=== PATIENT | female | born 1940 | race Caucasian/White ===

== ENCOUNTER → 2016-04-01 09:04 | Outpatient (CLI) | payer MEDICARE, BC ==
[2011-05-22 09:16] VITALS: BMI 45.0
== END | disposition home or self-care (01) ==
LOC: D.RT 09:00
DX: J44.9 Chronic obstructive pulmonary disease, unspecified (principal)

== ENCOUNTER 2016-10-02 07:27 | Inpatient (IN) | payer MEDICARE, BC ==
[~2016-10-02] VITALS: Ht 154.9 cm; Wt 100.2 kg
[2016-10-02 08:16] LABS: BASOPHILS 0.1 % (0-2); EOSINOPHILS 0.2 % (0-7); HEMATOCRIT 34.8 % (36.0-48.0); HEMOGLOBIN 11.3 g/dL (12-16); IMMATURE GRANULOCYTES 0.2 % (0-5); LYMPHOCYTES 5.6 % (15-50); MCH 30.4 pg (26.0-34.0); MCHC 32.5 g/dL (31.0-37.0); MCV 93.5 fL (80.0-100.0); MEAN PLATELET VOLUME 9.6 fL (7.4-10.4); MONOCYTES 7.1 % (2-11); NEUTROPHILS 86.8 % (40-80); PLATELET COUNT 194 10x3/uL (130-400); RBC 3.72 10x6/uL (4.00-5.40); WBC 13.6 10x3/uL (4.8-10.8)
[2016-10-02 08:24] LABS: ALBUMIN 3.5 g/dL (3.4-5.0); ALKALINE PHOSPHATASE 96 U/L (46-116); ALT (SGPT) 35 U/L (10-68); BILIRUBIN - TOTAL 0.64 mg/dL (0.2-1.3); CALC OSMOLALITY 278 mosm/kg (275-300); CARBON DIOXIDE 29.9 mmol/L (21.0-32.0); CHLORIDE - SERUM 99 mmol/L (98-107); CREATININE - SERUM 0.7 mg/dL (0.6-1.3); GLUCOSE 145 mg/dL (74-106); POTASSIUM - SERUM 4.1 mmol/L (3.5-5.1); PROTEIN - SERUM 7.3 g/dL (6.4-8.2); SODIUM 138 mmol/L (136-145); UREA NITROGEN 13 mg/dL (7-18); eGFR NON AFRICAN AMERICAN 86 mL/min (90-120)
[2016-10-02 08:31] LABS: CREATINE KINASE 53 UL (21-215); PRO BNP 375 pg/mL (0-450)
[2016-10-02 17:05] LABS: CKMB 0.7 U/L (0.0-3.6)
[2016-10-02 19:00] VITALS: BP 176/63
--- NOTE | 2016-10-02 19:53 | NUR ---
ARRIVED ON UNIT ACCOMPANIED BY HOSPITAL STAFF.
--- NOTE | 2016-10-02 20:10 | NUR ---
PT IN BED WITH HOB UP FOR COMFORT. WATCHING TV. ALERT & ORIENTED. FSBS ACHS. TELEMETRY. 02 @ 4L VIA N/C. LT AC SALINE LOC. BED IN LOWEST POSITION AND CALL LIGHT WITHIN REACH.
--- NOTE | 2016-10-02 20:15 | NUR ---
PT IN BED WITH HOB UP FOR COMOFRT. PT STATES SHE IS BREATHING A LITTLE BETTER. WILL CONTINUE TO MONITOR. CALL LIGHT WITHIN REACH.
[2016-10-02] MEDS ORDERED: PREDNISONE2.5 MG PO (22:12)
[2016-10-02] MEDS ORDERED: CALAN SR240 MG PO (22:13)
[2016-10-02] MEDS ORDERED: LASIX40 MG PO (22:14)
[2016-10-02] MEDS ORDERED: COZAAR25 MG PO (22:14)
[2016-10-02] MEDS ORDERED: GLUCOPHAGE500 MG PO (22:15)
[2016-10-02] MEDS ORDERED: K-DUR20 MEQ PO (22:15)
[2016-10-02] MEDS ORDERED: LOZOL 2.5 MG T2.5 MG PO (22:15)
[2016-10-02] MEDS ORDERED: NASONEX NASAL S17 GM NS (22:16)
[2016-10-02] MEDS ORDERED: ADVAIR 500/501 DISK INH (22:16)
--- NOTE | 2016-10-02 23:48 | NUR ---
RN TO DO ASSESSMENT.
--- NOTE | 2016-10-03 01:36 | NUR ---
CALL LIGHT IN REACH, WILL CONTINUE WITH PLAN OF CARE.
--- NOTE | 2016-10-03 02:56 | NUR ---
PT IN BED WITH HOB UP FOR COMFORT. EYES CLOSED. CHEST RISING AND FALLING. BED IN LOWEST POSITION AND CALL LIGHT WITHIN REACH.
--- NOTE | 2016-10-03 04:18 | NUR ---
PT IN BED WITH HOB UP FOR COMFORT. EYES CLOSED. RESP. EVEN. BED IN LOWEST POSITION AND CALL LIGHT WITHIN REACH.
[2016-10-03 06:11] LABS: BASOPHILS 0 % (0-2); EOSINOPHILS 0 % (0-7); HEMATOCRIT 37.6 % (36.0-48.0); HEMOGLOBIN 12.4 g/dL (12-16); IMMATURE GRANULOCYTES 0.4 % (0-5); LYMPHOCYTES 10.7 % (15-50); MCH 31.2 pg (26.0-34.0); MCV 94.7 fL (80.0-100.0); MEAN PLATELET VOLUME 9.9 fL (7.4-10.4); MONOCYTES 3.1 % (2-11); NEUTROPHILS 85.8 % (40-80); RBC 3.97 10x6/uL (4.00-5.40); RDW 13.7 % (11.5-14.5); WBC 10.7 10x3/uL (4.8-10.8)
[2016-10-03 06:14] LABS: PLATELET COUNT 260 10x3/uL (130-400)
[2016-10-03 06:24] VITALS: BP 144/85
[2016-10-03 06:30] LABS: ALBUMIN 3.5 g/dL (3.4-5.0); ANION GAP 13.9 mmol/L (8-16); BILIRUBIN - TOTAL 0.41 mg/dL (0.2-1.3); CALCIUM 8.8 mg/dL (8.5-10.1); CARBON DIOXIDE 31.8 mmol/L (21.0-32.0); CREATININE - SERUM 0.8 mg/dL (0.6-1.3); POTASSIUM - SERUM 3.7 mmol/L (3.5-5.1); PROTEIN - SERUM 7.9 g/dL (6.4-8.2)
--- NOTE | 2016-10-03 07:47 | NUR ---
AM ROUNDING- RECEIVED REPORT FROM RODEO CLOWN NURSE SARATH. PT IS CURRENTLY SITTING UP ON SIDE OF BED. DENIES ANY PAIN AT CURRENT TIME. ON O2 AT 4L VIA NC. ON MONITOR SHOWING SR, HR 82. IV SEEN TO LEFT AC THAT IS CURRENTLY SALINE LOCKED. NO NEED AT CURRENT TIME. WILL CONTINUE TO MONITOR AND CONTINUE WITH PLAN OF CARE.
[2016-10-03 08:00] VITALS: BP 133/86
[2016-10-03] MEDS ORDERED: PREDNISONE20 MG PO (14:02)
[2016-10-03 14:06] VITALS: Ht 154.9 cm; Wt 100.2 kg
--- NOTE | 2016-10-03 16:21 | NUR ---
D/C INSTRUCTIONS EXPLAINED TO PT. D/C PAPERWORK SIGNED BY PT AND PLACED IN CHART. HEART MONITOR REMOVED AND RETURNED TO [facility] IN TELEMETRY. IV TO LEFT AC REMOVED WITH CATH TIP INTACT. TOLERATED WELL. COVERED SITE WITH 2X2 GAUZE PADS AND SECURED WITH TAPE. PT D/C VIA WHEELCHAIR.
--- NOTE | 2016-10-03 20:28 | NUR ---
Patient Name: CHIKA CHAPPELL Admission Status: ER Accout number: [id number] Admission Date: 10-02-2016 : 1940 Admission Diagnosis: Attending: GODFREY Current LOS: 1 Anticipated DC Date:10-03-2016 Planned Disposition: Home Primary Insurance: MEDICARE A & B LATE ENTRY: Discharge Planning Comments: * Is the patient Alert and Oriented? Yes 0 * How many steps to enter\exit or inside your home? 2 0 * PCP DR SÁNCHEZ 0 * Pharmacy [facility] 0 * Preadmission Environment Home with Family 0 * ADLs Independent 0 * Equipment CPAP Nebulizer Oxygen Walker 0 * Other Equipment HOME AND PORTABLE OXYGEN [facility] - MEDICAL EQUIPMENT PROVIDER 0 * List name and contact numbers for known caregivers / representatives who currently or will assist patient after discharge: RADHA CHAPPELL, SON, 0 * Community resources currently utilized None 0 * Please name any agencies selected above. NONE 0 * Additional services required to return to the preadmission environment? No 0 * Can the patient safely return to the preadmission environment? Yes 0 * Has this patient been hospitalized within the prior 30 days at any hospital? No 0 CM MET WITH PT IN ROOM TO DISCUSS DISCHARGE PLANNING AND NEEDS. PT REPORTS LIVING AT HOME INDEPENDENTLY WITH HER ADULT SON. PT HAS ALL NEEDED MEDICAL EQUIPMENT AND NO OUTSIDE SERVICES ASSISTING IN THE HOME. CM DISCUSSED AVAILABILITY OF HOME HEALTH, REHAB SERVICES AND MEDICAL EQUIPMENT. PT DENIES DISCHARGE NEEDS, REPORTS HER SON WILL PICK HER UP FOR DISCHARGE HOME. Injection Mold Technician: Osmar Wynn
== END 2016-10-03 16:23 | disposition home or self-care (01) | DRG 192 ==
LOC: D.ER 07:27 → D.SDCHOLD 11:19 → D.M2 11:19
PROVIDERS: Emergency Medicine; ADMIT Family Medicine
DX: J44.1 Chronic obstructive pulmonary disease with (acute) exacerbation (principal); E11.9 Type 2 diabetes mellitus without complications

== ENCOUNTER 2017-03-02 20:20 | Inpatient (IN) | payer MEDICARE, BC ==
[~2017-03-02] VITALS: Ht 154.9 cm; Wt 107.3 kg
[~2017-03-02 20:20] MED LIST: ADVAIR 500/501 DISK INH; CALAN SR240 MG PO; COZAAR25 MG PO; GLUCOPHAGE500 MG PO; K-DUR20 MEQ PO; LASIX40 MG PO; LOZOL 2.5 MG T2.5 MG PO; NASONEX NASAL S17 GM NS; PREDNISONE2.5 MG PO; PREDNISONE20 MG PO
[2017-03-02 20:40] LABS: BASOPHILS 0.1 % (0-2); EOSINOPHILS 0 % (0-7); IMMATURE GRANULOCYTES 0.2 % (0-5); LYMPHOCYTES 10.7 % (15-50); MCH 29.6 pg (26.0-34.0); MCHC 31.4 g/dL (31.0-37.0); MCV 94.1 fL (80.0-100.0); MEAN PLATELET VOLUME 9.8 fL (7.4-10.4); MONOCYTES 7.2 % (2-11); NEUTROPHILS 81.8 % (40-80); PLATELET COUNT 150 10x3/uL (130-400); RBC 3.72 10x6/uL (4.00-5.40); RDW 15.1 % (11.5-14.5); WBC 10.4 10x3/uL (4.8-10.8)
[2017-03-02 21:06] LABS: ALBUMIN 3.6 g/dL (3.4-5.0); ALKALINE PHOSPHATASE 93 U/L (46-116); ALT (SGPT) 84 U/L (10-68); CALC OSMOLALITY 280 mosm/kg (275-300); CALCIUM 8.7 mg/dL (8.5-10.1); CARBON DIOXIDE 31.4 mmol/L (21.0-32.0); CHLORIDE - SERUM 99 mmol/L (98-107); CREATININE - SERUM 0.6 mg/dL (0.6-1.3); GLUCOSE 137 mg/dL (74-106); PROTEIN - SERUM 7.2 g/dL (6.4-8.2); SODIUM 139 mmol/L (136-145); UREA NITROGEN 15 mg/dL (7-18); eGFR NON AFRICAN AMERICAN > 90 mL/min (90-120)
[2017-03-02 21:08] LABS: CKMB 0.8 U/L (0.0-3.6); CREATINE KINASE 88 UL (21-215); PRO BNP 324 pg/mL (0-450); TROPONIN-I < 0.017 ng/mL (0.000-0.060)
--- NOTE | 2017-03-02 22:40 | NUR ---
REC'D PATIENT FROM ER. PATIENT RESTING IN BED AND COMPLAINED OF DIFFICULTY BREATHING. PATIENT'S O2 IS 98% ON 4L. INSTRUCTED THE PATIENT ON BREATHING. PATIENT STATED SHE IS "OK NOW". COMPLETED PATIENT'S ADMISSION AND ASSESSMENT. RAISED THE HOB ALL THE WAY UP PER THE PATIENT'S REQUEST AND PUT A FAN IN HER ROOM. PATIENT DENIES OTHER NEEDS AT THIS TIME. BED IN LOWEST POSITION AND CALL LIGHT WITHIN REACH. ENCOURAGED THE PATIENT TO CALL IF SHE HAS NEEDS.
[2017-03-03 02:09] VITALS: BP 149/59; BMI 42.6
[2017-03-03 05:50] LABS: BASOPHILS 0 % (0-2); EOSINOPHILS 0 % (0-7); HEMATOCRIT 36.9 % (36.0-48.0); HEMOGLOBIN 11.8 g/dL (12-16); IMMATURE GRANULOCYTES 0.2 % (0-5); LYMPHOCYTES 3.3 % (15-50); MCH 30.3 pg (26.0-34.0); MCV 94.6 fL (80.0-100.0); MEAN PLATELET VOLUME 9.7 fL (7.4-10.4); MONOCYTES 2.7 % (2-11); NEUTROPHILS 93.8 % (40-80); PLATELET COUNT 160 10x3/uL (130-400); RDW 15.3 % (11.5-14.5); WBC 11.7 10x3/uL (4.8-10.8)
[2017-03-03 06:14] LABS: ANION GAP 13.5 mmol/L (8-16); CALCIUM 8.5 mg/dL (8.5-10.1); CARBON DIOXIDE 31.5 mmol/L (21.0-32.0)
[2017-03-03 06:16] LABS: CREATININE - SERUM 0.8 mg/dL (0.6-1.3)
--- NOTE | 2017-03-03 07:38 | NUR ---
REPORT RECEIVED, ASSUMED CARE OF PT. RESTING, FAMILY AT BEDSIDE. NO NEEDS VOICED AT THIS TIME. BED IN LOWEST POSITION, SIDE RAILS UP X 2, CALL LIGHT WITHIN REACH.
[2017-03-03 07:46] VITALS: BP 104/58; BP 152/57
[2017-03-03 11:59] VITALS: BP 126/56
[2017-03-03 13:56] VITALS: Ht 154.9 cm; Wt 107.3 kg
[2017-03-03 16:07] VITALS: BP 115/57
--- NOTE | 2017-03-03 21:10 | NUR ---
PATIENT RESTING IN BED WITH NO S/S OF DISTRESS. BED IN LOWEST POSITION AND CALL LIGHT WITHIN REACH.
[2017-03-04 02:00] VITALS: BP 127/66
[2017-03-04 05:00] VITALS: BP 122/68
[2017-03-04 05:51] LABS: BASOPHILS 0.1 % (0-2); EOSINOPHILS 0 % (0-7); HEMATOCRIT 34.4 % (36.0-48.0); IMMATURE GRANULOCYTES 0.2 % (0-5); LYMPHOCYTES 5.7 % (15-50); MCH 29.8 pg (26.0-34.0); MCV 93.2 fL (80.0-100.0); MEAN PLATELET VOLUME 9.7 fL (7.4-10.4); MONOCYTES 4.2 % (2-11); NEUTROPHILS 89.8 % (40-80); PLATELET COUNT 161 10x3/uL (130-400); RBC 3.69 10x6/uL (4.00-5.40); RDW 15.2 % (11.5-14.5); WBC 9.1 10x3/uL (4.8-10.8)
[2017-03-04 06:16] LABS: ALBUMIN 3.5 g/dL (3.4-5.0); ALKALINE PHOSPHATASE 84 U/L (46-116); ALT (SGPT) 78 U/L (10-68); CALC OSMOLALITY 286 mosm/kg (275-300); CALCIUM 8.5 mg/dL (8.5-10.1); CARBON DIOXIDE 30.3 mmol/L (21.0-32.0); CHLORIDE - SERUM 97 mmol/L (98-107); CREATININE - SERUM 0.7 mg/dL (0.6-1.3); GLUCOSE 173 mg/dL (74-106); POTASSIUM - SERUM 3.9 mmol/L (3.5-5.1); PROTEIN - SERUM 6.9 g/dL (6.4-8.2); SODIUM 139 mmol/L (136-145); eGFR NON AFRICAN AMERICAN 86 mL/min (90-120)
[2017-03-04 06:17] LABS: UREA NITROGEN 26 mg/dL (7-18)
--- NOTE | 2017-03-04 07:33 | NUR ---
PATIENT SITTING UP ON THE SIDE OF HER BED. PATIENT IS AWAKE, ALERT, AND ORIENTED X4. DROPLET PRECAUTIONS IN PLACE. PATIENT DENIES ANY NEEDS AT PRESENT TIME. CALL LIGHT IN PATIENT'S REACH. WILL MONITOR PATIENT.
[2017-03-04 08:34] VITALS: BP 123/55
[2017-03-04 11:57] VITALS: BP 116/52
[2017-03-04 16:07] VITALS: BP 106/76
[2017-03-04 20:00] VITALS: BP 118/47
--- NOTE | 2017-03-04 20:10 | NUR ---
PATIENT WAS SITTING UP AT THE SIDE OF THE BED WITH HER O2 ON WHEN I ENTERED THE ROOM. I ADMINISTERED THE PATIENT'S MEDS PER ORDERS AND COMPLETED HER ASSESSMENT. I SWITHCED THE PATIENT TO HER CPAP PER HER REQUEST AND HELPED HER GET POSITIONED IN THE BED. THE PATIENT STATED IT IS "HARD TO BREATH IN THE BED" AND WANTED TO SIT ON THE SIDE OF THE BED AGAIN. I OFFERED TO ASSIST THE PATIENT TO THE CHAIR AND SHE AGREED. AFTER ASSISTING THE PATIENT TO THE CHAIR SHE AGAIN SAID "IT IS HARD TO BREATH THIS WAY TOO" AND REQUESTED THAT I HELP HER BACK TO BED. THE PATIENT REQUESTED TO STAY SITTING ON THE BED. BED IS IN THE LOWEST POSITION AND THE CALL LIGHT IS WITHIN REACH. ENCOURAGED THE PATIENT TO CALL IF SHE HAS NEEDS.
[2017-03-05] VITALS: BP 110/49
[2017-03-05 04:00] VITALS: BP 153/59
--- NOTE | 2017-03-05 04:36 | NUR ---
PATIENT HAS SAT UP ON THE SIDE OF THE BED MOST OF THE NIGHT. I HAVE ATTEMPTED TO HELP THE PATIENT INTO THE BED/CHAIR SEVERAL TIMES, HOWEVER, THE PATIENT STATED "IT MAKES IT HARDER TO BREATH"
[2017-03-05 05:53] LABS: BASOPHILS 0.2 % (0-2); EOSINOPHILS 0 % (0-7); HEMATOCRIT 35.9 % (36.0-48.0); HEMOGLOBIN 11.8 g/dL (12-16); IMMATURE GRANULOCYTES 0.4 % (0-5); LYMPHOCYTES 5.9 % (15-50); MCH 30.3 pg (26.0-34.0); MCHC 32.9 g/dL (31.0-37.0); MCV 92.3 fL (80.0-100.0); MEAN PLATELET VOLUME 9.6 fL (7.4-10.4); MONOCYTES 7.5 % (2-11); PLATELET COUNT 193 10x3/uL (130-400); RBC 3.89 10x6/uL (4.00-5.40); RDW 14.8 % (11.5-14.5); WBC 11.1 10x3/uL (4.8-10.8)
[2017-03-05 06:13] LABS: ALBUMIN 3.7 g/dL (3.4-5.0); ANION GAP 8.1 mmol/L (8-16); BILIRUBIN - TOTAL 0.4 mg/dL (0.2-1.3); CALCIUM 8.8 mg/dL (8.5-10.1); CARBON DIOXIDE 31.5 mmol/L (21.0-32.0); CREATININE - SERUM 0.8 mg/dL (0.6-1.3); POTASSIUM - SERUM 3.6 mmol/L (3.5-5.1); PROTEIN - SERUM 7.8 g/dL (6.4-8.2)
--- NOTE | 2017-03-05 08:07 | NUR ---
PATIENT SITTING UP ON THE SIDE OF HER BED. PATIENT IS AWAKE, ALERT, AND ORIENTED X4. ASSESSMENT COMPLETED. SEE FLOWSHEET FOR DETAILS. SCHEDULED MORNING MEDICATIONS GIVEN TO PATIENT. PATIENT TOLERATED WELL. PATIENT IS A DNR. CALL LIGHT IN PATIENT'S REACH. DROPLET PRECAUTIONS IN PLACE. PATIENT DENIES ANY NEEDS AT PRESENT TIME. WILL MONITOR PATIENT.
[2017-03-05 09:13] VITALS: BP 91/84
[2017-03-05 12:33] VITALS: BP 108/80
--- NOTE | 2017-03-05 13:58 | NUR ---
16 CHINESE CHOI CATHETER INSERTED USING STERILE TECHNIQUE. 10 ML OF STERILE WATER USED TO INFLATE CATHETER BALLOON. PATIENT TOLERATED WELL.
[2017-03-05 16:47] VITALS: BP 121/63
[2017-03-05 20:00] VITALS: BP 133/56
--- NOTE | 2017-03-05 20:40 | NUR ---
AROUSES EASILY TO VERBAL STIMULI.ALERT,ORIENTED. BIPAP ON. RESP EVEN AND UNLABORED. SL TO LEFT FOREARM WITHOUT REDNESS OR EDEMA NOTED. CL IN REACH.
[2017-03-06] VITALS: BP 126/69
--- NOTE | 2017-03-06 05:57 | NUR ---
RESTING QUIETLY. NO DISTRESS NOTED.CL IN REACH
[2017-03-06 06:51] LABS: BASOPHILS 0.1 % (0-2); EOSINOPHILS 0 % (0-7); HEMATOCRIT 34.7 % (36.0-48.0); HEMOGLOBIN 11.3 g/dL (12-16); IMMATURE GRANULOCYTES 0.5 % (0-5); MCH 30.2 pg (26.0-34.0); MCHC 32.6 g/dL (31.0-37.0); MCV 92.8 fL (80.0-100.0); MEAN PLATELET VOLUME 9.7 fL (7.4-10.4); MONOCYTES 8.5 % (2-11); NEUTROPHILS 82.9 % (40-80); PLATELET COUNT 202 10x3/uL (130-400); RBC 3.74 10x6/uL (4.00-5.40); RDW 14.5 % (11.5-14.5); WBC 11.9 10x3/uL (4.8-10.8)
[2017-03-06 06:52] VITALS: BP 142/61
[2017-03-06 07:17] LABS: ALBUMIN 3.4 g/dL (3.4-5.0); ALKALINE PHOSPHATASE 79 U/L (46-116); ALT (SGPT) 93 U/L (10-68); CALC OSMOLALITY 286 mosm/kg (275-300); CALCIUM 8.4 mg/dL (8.5-10.1); CARBON DIOXIDE 35.8 mmol/L (21.0-32.0); CHLORIDE - SERUM 99 mmol/L (98-107); CREATININE - SERUM 0.7 mg/dL (0.6-1.3); GLUCOSE 153 mg/dL (74-106); POTASSIUM - SERUM 3.4 mmol/L (3.5-5.1); PROTEIN - SERUM 7.4 g/dL (6.4-8.2); SODIUM 139 mmol/L (136-145); eGFR NON AFRICAN AMERICAN 86 mL/min (90-120)
[2017-03-06 07:19] LABS: UREA NITROGEN 28 mg/dL (7-18)
--- NOTE | 2017-03-06 07:37 | NUR ---
RECIEVED REPORT ON PATIENT, PATIENT IS ALERT AND ORIENTED. PATIENT IS SITTING ON SIDE OF BED AT THIS TIME. SON IS AT BEDSIDE. PATIENT IS SR ON MONITOR WITH A RATE OF 78. PATIENT IS ON 4L/MIN OF O2 VIA NC. NAD NOTED AT THIS TIME. PATIENT IS ON DROPLET ISOLATION FOR FLU. PATIENT DENIES ANY NEEDS AT THIS TIME. BED IS LOW AND LOCKED. CALL LIGHT IN REACH. CPOC
--- NOTE | 2017-03-06 09:15 | NUR ---
MORNING MEDICATIONS GIVEN, NO ISSUES AT THIS TIME. NEEDS MET. CPOC
[2017-03-06 09:45] VITALS: BP 142/55
--- NOTE | 2017-03-06 11:45 | NUR ---
FSBS 275, 4 UNITS OF INSULIN GIVEN PER PROTOCOL. CPOC
[2017-03-06 12:08] VITALS: BP 138/44
--- NOTE | 2017-03-06 13:00 | NUR ---
PATIENT SITTING ON SIDE OF BED EATING LUNCH. DENIES ANY NEEDS. CPOC
--- NOTE | 2017-03-06 13:30 | NUR ---
NUTRITION F/U CHART REVIEWED. PT VISIT. TOLERATING ADA DIET, 25 TO 100% INTAKE RECENT MEALS. WILL CONTINUE TO MONITOR PT PROGRESS, PROVIDE ADA DIET. RD FOLLOWING
--- NOTE | 2017-03-06 15:00 | NUR ---
PATIENT RESTING WITH BIPAP ON, NAD NOTED. CHEST RISES AND FALLS EQUALLY. WILL CONT TO MONITOR. CPOC
--- NOTE | 2017-03-06 16:30 | NUR ---
FSBS 152, PATIENT WANTS TO WAIT ON INSULIN AT THIS TIME, SINCE SHE DROPPED SO MUCH LAST TIME. WILL CONT TO MONITOR. CPOC
[2017-03-06 16:41] VITALS: BP 140/58
--- NOTE | 2017-03-06 18:00 | NUR ---
PATIENT EATING DINNER AT THIS TIME, ROUNDS MADE. INFORMED PATIENT SHIFT IS NEAR ENDING. DENIES ANY NEEDS AT THIS TIME. CPOC
--- NOTE | 2017-03-06 19:40 | NUR ---
A&O, DENIES NEEDS, CALL LIGHT IN REACH, BED LOWEST POSITION, WILL CONTINUE TO MONITOR
[2017-03-06 20:00] VITALS: BP 113/43
[2017-03-07] VITALS (7 sets, daily range): BP systolic 121–145; BP diastolic 40–66
[2017-03-07 07:45] LABS: ALBUMIN 3.4 g/dL (3.4-5.0); ANION GAP 10.6 mmol/L (8-16); BASOPHILS 0.2 % (0-2); BILIRUBIN - TOTAL 0.41 mg/dL (0.2-1.3); CALCIUM 8.4 mg/dL (8.5-10.1); EOSINOPHILS 0 % (0-7); HEMATOCRIT 35.8 % (36.0-48.0); HEMOGLOBIN 11.6 g/dL (12-16); IMMATURE GRANULOCYTES 1.6 % (0-5); LYMPHOCYTES 9.2 % (15-50); MCH 30.2 pg (26.0-34.0); MCHC 32.4 g/dL (31.0-37.0); MCV 93.2 fL (80.0-100.0); MEAN PLATELET VOLUME 10.1 fL (7.4-10.4); MONOCYTES 10.6 % (2-11); NEUTROPHILS 78.4 % (40-80); PLATELET COUNT 212 10x3/uL (130-400); POTASSIUM - SERUM 3.6 mmol/L (3.5-5.1); PROTEIN - SERUM 7.6 g/dL (6.4-8.2); RBC 3.84 10x6/uL (4.00-5.40); RDW 14.3 % (11.5-14.5)
[2017-03-07 07:46] LABS: WBC 8.3 10x3/uL (4.8-10.8)
[2017-03-07 07:48] LABS: CREATININE - SERUM 0.9 mg/dL (0.6-1.3)
--- NOTE | 2017-03-07 08:00 | NUR ---
LYING IN BED,WITHOUT DISTRESS.CALL LIGHT IN REACH
--- NOTE | 2017-03-07 09:19 | NUR ---
ORDER RECEIVED FOR A BIPAP MACHINE TO SEE IF PATIENT COULD GET ONE FOR HOME. REFERRAL SENT TO [facility]. CM WILL CONTINUE TO FOLLOW AND ASSIST WITH THIS.
--- NOTE | 2017-03-07 11:42 | NUR ---
ORDER RECEIVED FROM DR CLAYTON FOR A TRILOGY, CAT WITH [facility] TO SET UP. NEED TO CONTACT CAT AT [facility] WHEN PATIENT IS DISCHARGED FOR DELIVERY OF MACHINE [phone]. CM WILL CONTINUE TO FOLLOW AND ASSIST WITH DISCHARGE PLANNING
[2017-03-07 13:14] LABS: AEROBE ID Final report (()); RESULT 1 Aeromonas sobria (())
--- NOTE | 2017-03-07 14:23 | NUR ---
ANTICIPATE THE PATIENT TO BE DISCHARGED TOMORROW. TRILOGY TO BE DEILIVERED TO HOME BY [facility] HE IS AWARE THAT THE PATIENT SHOULD BE DISCHARGED TOMORROW. IF THERE ARE ANY QUESTIONS PLEASE CALL [facility] AT [phone]
--- NOTE | 2017-03-07 15:32 | NUR ---
Patient Name: CHIKA CHAPPELL Admission Status: ER Accout number: [id number] Admission Date: 03-02-2017 : 1940 Admission Diagnosis:FLU DUE TO UNIDENTIFIED FLU VIRUS W UNSP TYPE OF PNEUMO Attending: KELY SÁNCHEZ Current LOS: 5 Anticipated DC Date: Planned Disposition: Home Primary Insurance: MEDICARE A & B Discharge Planning Comments: CM MET WITH PATIENT TO ASSESS DISCHARGE PLANNING NEEDS. PATIENT LIVES AT HOME IN THE [facility]. HER ADULT SON LIVES WITH HER. PATIENT RECENTLY SPOKE WITH [facility], BUT WAS UNSURE ABOUT IT. SHE HAS A CPAP MACHINE, HOME O2 , WALKER AND WHEELCHAIR. SHE WILL BE GETTING A TRILOGY FROM [place]. SHE STATED THAT SHE IS INDEPENDENT WITH HER CARE AT HOME. IMM SERVED CM WILL CONTINUE TO FOLLOW AND ASSIST WITH DISCHARGE PLANNING NEEDS. PCP: PRINCESS GARCIA (SON) [phone] Salvage Winder And Inspector: Ofelia Hamm
--- NOTE | 2017-03-07 17:49 | NUR ---
CHOI CATHETER DC'D. BRIEF PUT ON PT. EXPLAINED TO PT THAT SHE HAS UP TO 8HRS TO URINATE AND IF SHE IS UNABLE TO THAT WE COULD DO AN IN AND OUT CATH TO RELIEVE THE PRESSURE OFF OF HER BLADDER. PT HAS NO QUESTIONS OR CONCERNS AT THIS TIME.
--- NOTE | 2017-03-07 19:35 | NUR ---
PT ASSESSMENT COMPLETE AWAKE AND ALERT ORIENTED X 3 LUNGS WITH DIMINSHED BASES BILATERALLY NOTED TO HAVE WHEEZING IN BILATERAL UPPER LOBES. HRRR NO DISTRESS NTOED. ALL ADLS PER STAFF ASSIST CHOI CATHETER REMOVED AT 1800 PER DAY SHIFT NURSE. WILL MONITOR FOR VOID.
--- NOTE | 2017-03-07 22:00 | NUR ---
PT IV LEAKING RESITED TO RIGHT FORARM 22 GA X 1 STICK TOLERATED WELL. ABX PUSHED PER ORDER OVER 30 MIN. PT SITTING UP IN CHAIR AT BEDSIDE.
--- NOTE | 2017-03-08 02:36 | NUR ---
PT RESTING WELL SITTING UP IN CHAIR AT BEDSIDE. NO DISTRESS NTOED CALL LIGHT INREACH.
[2017-03-08 03:49] VITALS: BP 141/54
--- NOTE | 2017-03-08 04:06 | NUR ---
PT SITTING UP CHAIR RESTING QUIETLY, EYES CLOSED. RESP EVEN, UNLABORED. NO DISTRESS NOTED. CONTINUE HAND CROWN POUNCER'S PLAN OF CARE.
[2017-03-08 06:24] LABS: BASOPHILS 0.1 % (0-2); EOSINOPHILS 0 % (0-7); HEMATOCRIT 34.6 % (36.0-48.0); HEMOGLOBIN 11.3 g/dL (12-16); IMMATURE GRANULOCYTES 4.8 % (0-5); LYMPHOCYTES 8.8 % (15-50); MCH 30.2 pg (26.0-34.0); MCHC 32.7 g/dL (31.0-37.0); MCV 92.5 fL (80.0-100.0); MEAN PLATELET VOLUME 9.9 fL (7.4-10.4); MONOCYTES 9.2 % (2-11); NEUTROPHILS 77.1 % (40-80); PLATELET COUNT 216 10x3/uL (130-400); RBC 3.74 10x6/uL (4.00-5.40); RDW 13.9 % (11.5-14.5); WBC 9.6 10x3/uL (4.8-10.8)
[2017-03-08 06:41] LABS: ALBUMIN 3.3 g/dL (3.4-5.0); ANION GAP 6.2 mmol/L (8-16); BILIRUBIN - TOTAL 0.39 mg/dL (0.2-1.3); CALCIUM 8.7 mg/dL (8.5-10.1); CARBON DIOXIDE 38.1 mmol/L (21.0-32.0); CREATININE - SERUM 0.8 mg/dL (0.6-1.3); POTASSIUM - SERUM 4.3 mmol/L (3.5-5.1); PROTEIN - SERUM 7.3 g/dL (6.4-8.2)
--- NOTE | 2017-03-08 08:02 | NUR ---
PT REC'D FROM [facility]. UP USING BSC. 1 MEDIUM SIZED SOFT BM. ASSISTED WITH REINIER CARE AND BACK TO BED. TACHYEPNIC, EXPIRATORY WHEEZES NOTED TO UPPER LOBES BILAT AND CRACKLES NOTED BILAT TO LOWER LOBES. NO COMPLAINTS OF PAIN. REP HERE TO TEACH PT ABOUT TRILOGY MACHINE. BED LOW, CALL LIGHT IN REACH, DENIES NEEDS. CPOC.
[2017-03-08] MEDS ORDERED: PREDNISONE20 MG PO (08:35)
[2017-03-08 09:26] VITALS: BP 155/51
--- NOTE | 2017-03-08 11:00 | NUR ---
PT DC'D AT THIS TIME. PIV TO R FA DC'D WITH CATHETER INTACT. PRESSURE AND DRESSING APPLIED. NO QUESTIONS OR CONCERNS VOICED. ESCORTED OUT VIA WC. DRIVEN HOME BY SON.
--- NOTE | 2017-03-08 13:53 | NUR ---
LATE ENTRY 1030 CM RECEIVED DISCHARGE ORDERS FOR D/C TO HOME W/ HOME HEALTH. SPOKE WITH THE PATIENT AND HER SON, RADHA CHAPPELL, AT THE BEDSIDE. SHE HAD NO PREFERRED PROVIDER. REVIEWED PATIENT CHOICE FORM. REFERRED TO [facility]. CM ADVISED SHE MAY NOT SEE HOME HEALTH UNTIL LATE IN THE WEEK. SHE STATED THAT WAS OKAY SHE WOULD HAVE FAMILY ASSISTANCE. HER GRANDDAUGHTER IS COMING TO HELP. PATIENT STATED SHE HAD RECEIVED HER TRILOGY FROM [facility]. DENIED ANY OTHER NEEDS. THE SON WILL BE PROVIDING TRANSPORTATION. TC TO [facility]. KARISSA SPOKE WITH MEET. PATIENT WILL BE SEEN ON FRIDAY. FAXED REFERRAL INFORMATION. CAT CALLED FROM [facility] TO CONFIRM DISCHARGE. HE WILL F/U WITH THE PATIENT.
== END 2017-03-08 11:52 | disposition home health service (06) | DRG 177 ==
LOC: D.ER 20:20 → D.MS 22:16
PROVIDERS: Family Medicine; ADMIT Family Medicine
PROC: 0T9B70Z Drainage of Bladder with Drainage Device, Via Natural or Artificial Opening (ICD-10-PCS; principal; 2017-03-05)
DX: J11.08 Influenza due to unidentified influenza virus with specified pneumonia (principal); J96.20 Acute and chronic respiratory failure, unspecified whether with hypoxia or hypercapnia; J15.6 Pneumonia due to other Gram-negative bacteria; I50.32 Chronic diastolic (congestive) heart failure; J44.0 Chronic obstructive pulmonary disease with (acute) lower respiratory infection; J44.1 Chronic obstructive pulmonary disease with (acute) exacerbation; Z68.41 Body mass index [BMI] 40.0-44.9, adult; J13 Pneumonia due to Streptococcus pneumoniae; E11.9 Type 2 diabetes mellitus without complications; I11.0 Hypertensive heart disease with heart failure; G47.33 Obstructive sleep apnea (adult) (pediatric); K21.9 Gastro-esophageal reflux disease without esophagitis; D64.9 Anemia, unspecified; I27.20 Pulmonary hypertension, unspecified; Z66 Do not resuscitate; E66.9 Obesity, unspecified; Z99.81 Dependence on supplemental oxygen; R25.1 Tremor, unspecified

== ENCOUNTER 2017-08-02 17:45 | Inpatient (IN) | payer MEDICARE, BC ==
[~2017-08-02] VITALS: Ht 154.9 cm; Wt 104.5 kg
--- NOTE | ~2017-08-02 | EC ---
PATIENT:CHIKA CHAPPELL DATE OF SERVICE: 08/02/17 SEX: F MEDICAL RECORD: [id number] DATE OF : [birth year] LOCATION:D.M2 D.213 AGE OF PATIENT: 77 ADMISSION DATE: 08/02/17 REFERRING PHYSICIAN: INTERPRETING PHYSICIAN: YANIV MALIN MD ECHOCARDIOGRAM REPORT ECHO CHARGES 4 ECHO COMPLETE Date: 08/03 CLINICAL DIAGNOSIS: H/O CHF ECHOCARDIOGRAPHIC MEASUREMENTS (adult normal given) AC root (d.<3.7cm) 2.9 cm LV Septum d (<1.2 cm> 1.4 cm Valve Excursion 1.5 cm LV Septum (systole) 1.7 cm Left Atria (s.<4.0cm> 3.7 cm LVPW d(<1.2cm) 1.3 cm RV (d.<2.3cm) 2.2 cm LVPW (sytole) 1.9 cm LV diastole(<5.6CM) 3.3 cm MV E-F(>70mm/sec) cm LV systole 1.8 cm LVOT Diameter 1.7 cm MV exc.(>10mm) cm Est.ejection fraction (50-75%) % DOPPLER: LVIT cm/sec A 65.0 cm/sec E 119 cm/sec LA cm/sec RVSP 34.0 mmHg LVOT 111 cm/sec AOP1/2T m/s Asc. Ao 181 cm/sec RVOT 127 cm/sec RA cm/sec PA 152 cm/sec AV Gradient Peak 13.1 mmHg AV Mean 6.1 mmHg AV Area 1.6 cm MV Gradient Peak 8.1 mmHg MV Mean 2.4 mmHg MV Area cm COMMENTS: Medical Technician: 1 CASANDRA VIERAOE Security Police Officer: 3 Dr. Madrigal TAPE# PACS Pericardial Effusion Y DATE OF SERVICE: Adequate 2D, color flow, and spectral Doppler M-mode. Borderline LVH. LV internal dimensions are normal. LV is mildly globally hypokinetic with mildly reduced EF, estimated EF 40% to 45%. Aortic valve sclerosis without stenosis by Doppler interrogation. The left atrium is normal at 3.7 cm. The mitral valve is thickened. Mild MR. Right-sided chamber is grossly normal. Mild TR. TRANSINT:[id number] Voice Confirmation ID: [id number] DOCUMENT ID: [id number] ECHOCARDIOGRAM REPORT [id number] TACHIKA SHEETS GREGORY A MD at 1359 CC: [id number] DICTATION DATE: 08/04/17 0859 PROJECT ENG: 08/04/17 1047 ADM IN [place] [id number] [place] [id number]
--- NOTE | ~2017-08-02 | CN ---
PATIENT NAME:CHIKA BONILLA MEDICAL RECORD: [id number] : [birth year] LOCATION:D. D.2136 ADMIT DATE: 08/02/17 ACCOUNT: [id number] CONSULTING PHYSICIAN: FLOYD CLAYTON MD REFERRING PHYSICIAN: KELY SÁNCHEZ MD DATE OF CONSULTATION: 08/03/2017 CONSULT REQUESTING PHYSICIAN: Dr. Sánchez. REASON FOR CONSULTATION: Ljwzr-[id number] hypoxic respiratory failure, exacerbation of chronic obstructive pulmonary disease. HISTORY OF PRESENT ILLNESS: Ms. Bonilla is a 77-year-old female who has a history of severe COPD, home oxygen dependent. According to the patient, she is sick for the last few days. She is coughing. She is wheezing. She has shortness of breath. She is also having orthopnea. Ambulance was called and the patient was brought in on BiPAP. Now, she is feeling a little bit better. Denies any chest pain. REVIEW OF SYSTEMS: As in history of present illness. PAST MEDICAL HISTORY: 1. COPD of severe degree. 2. Chronic hypoxic respiratory failure. 3. Mild pulmonary hypertension secondary to congestive heart failure as well as chronic obstructive pulmonary disease. 4. Congestive heart failure, chronic diastolic dysfunction. 5. Diabetes mellitus. 6. Hypertension. PAST SURGICAL HISTORY: She has a tubal ligation. ALLERGIES: She is allergic to PENICILLIN. MEDICATIONS: Equipboard is reviewed. PERSONAL SOCIAL HISTORY: The patient is a nonsmoker, nondrinker. FAMILY HISTORY: Noncontributory. PHYSICAL EXAMINATION: GENERAL: The patient is now lying comfortably in bed. She is not in acute distress. VITAL SIGNS: The blood pressure is 118/77, pulse is 82, respiration is 24, temperature 97.5, and SpO2 99% on 6 liters. HEENT: Conjunctivae are pink. Sclerae not icteric. NECK: Neck is supple, no JVD. CHEST: Chest excursion is minimal on both sides with bilateral crackles and wheezing. HEART: Rhythm regular, normal sound, no murmur. ABDOMEN: Abdomen is soft. Bowel sounds present. No hepatosplenomegaly. RECTAL: Deferred. EXTREMITIES: No cyanosis, no clubbing, and no pedal edema. SKIN: The skin is warm, normal turgor. CENTRAL NERVOUS SYSTEM: The patient is awake and alert. There is no obvious CONSULT REPORT [id number] CHIKA BONILLA cranial nerve abnormality. The gait was not tested. DIAGNOSTIC DATA: Chest radiograph, there are bilateral increased interstitial marking. There are bibasilar infiltrate. LABORATORY DATA: CBC: The WBC is 19.8, hemoglobin 11.4, hematocrit is 35.7, the platelet count is 298. Chemistry: Sodium 135, potassium 4.4, BUN is 17, creatinine 0.9. ABG: The pH is 7.47, pCO2 of 41.4, the pO2 is 93, bicarbonate 29.3, this was done on 15 liters CPAP. IMPRESSION: 1. Acute exacerbation of chronic obstructive pulmonary disease. 2. Jombj-ii-piwmxpp hypoxic respiratory failure. 3. Bibasilar pneumonia consistent with a community-acquired pneumonia. 4. Leukocytosis. 5. Congestive heart failure, chronic diastolic dysfunction. 6. Bilateral pleural effusion. 7. There is some secondary pulmonary hypertension. RECOMMENDATION: 1. Methylprednisolone IV, Lasix IV. Continue Levaquin, add Rocephin. 2. Albuterol/ipratropium nebulizer, Brovana and budesonide nebulizer. 3. Supplemental oxygen. 4. Mucinex DM. 5. Followup labs and chest radiograph. Dr. Sánchez thank you for involving me in the care of Ms. Bonilla. TRANSINT:[id number] Voice Confirmation ID: [id number] DOCUMENT ID: [id number] FLOYD CLAYTON MD CC: KELY SÁNCHEZ MD [id number] DICTATION DATE: 08/03/17 1540 HEAD STRENGTH AND CONDITIONING COACH: 08/03/17 1606 ADM IN [address] [place] [address]
[2017-08-02 18:47] LABS: BASOPHILS 0.1 % (0-2); EOSINOPHILS 0 % (0-7); HEMATOCRIT 35.7 % (36.0-48.0); HEMOGLOBIN 11.4 g/dL (12-16); IMMATURE GRANULOCYTES 0.5 % (0-5); LYMPHOCYTES 5.7 % (15-50); MCH 29.3 pg (26.0-34.0); MCHC 31.9 g/dL (31.0-37.0); MCV 91.8 fL (80.0-100.0); MEAN PLATELET VOLUME 9.3 fL (7.4-10.4); MONOCYTES 6.3 % (2-11); NEUTROPHILS 87.4 % (40-80); PLATELET COUNT 298 10x3/uL (130-400); RBC 3.89 10x6/uL (4.00-5.40); RDW 14.8 % (11.5-14.5); WBC 19.8 10x3/uL (4.8-10.8)
[2017-08-02 18:58] LABS: ALBUMIN 3.3 g/dL (3.4-5.0); ALKALINE PHOSPHATASE 88 U/L (46-116); ALT (SGPT) 33 U/L (10-68); BILIRUBIN - TOTAL 1.14 mg/dL (0.2-1.3); CALC OSMOLALITY 275 mosm/kg (275-300); CALCIUM 9.3 mg/dL (8.5-10.1); CARBON DIOXIDE 33.4 mmol/L (21.0-32.0); CHLORIDE - SERUM 95 mmol/L (98-107); CREATININE - SERUM 0.9 mg/dL (0.6-1.3); GLUCOSE 169 mg/dL (74-106); POTASSIUM - SERUM 4.4 mmol/L (3.5-5.1); PROTEIN - SERUM 7.4 g/dL (6.4-8.2); SODIUM 135 mmol/L (136-145); UREA NITROGEN 17 mg/dL (7-18); eGFR NON AFRICAN AMERICAN 64 mL/min (90-120)
[2017-08-02 19:06] LABS: CREATINE KINASE 28 UL (21-215); PRO BNP 1893 pg/mL (0-450); TROPONIN-I < 0.017 ng/mL (0.000-0.060)
[2017-08-03 04:00] VITALS: BP 115/57
[2017-08-03 04:25] VITALS: BP 115/57; BMI 43.1
[2017-08-03 07:04] LABS: BASOPHILS 0.1 % (0-2); EOSINOPHILS 0 % (0-7); HEMATOCRIT 32.9 % (36.0-48.0); HEMOGLOBIN 10.7 g/dL (12-16); IMMATURE GRANULOCYTES 0.4 % (0-5); LYMPHOCYTES 6.8 % (15-50); MCH 29.4 pg (26.0-34.0); MCHC 32.5 g/dL (31.0-37.0); MCV 90.4 fL (80.0-100.0); MEAN PLATELET VOLUME 9.5 fL (7.4-10.4); MONOCYTES 5.4 % (2-11); NEUTROPHILS 87.3 % (40-80); PLATELET COUNT 250 10x3/uL (130-400); RBC 3.64 10x6/uL (4.00-5.40); RDW 14.3 % (11.5-14.5)
[2017-08-03 07:06] LABS: WBC 13.8 10x3/uL (4.8-10.8)
[2017-08-03 07:21] LABS: CARBON DIOXIDE 28.9 mmol/L (21.0-32.0); CREATININE - SERUM 0.8 mg/dL (0.6-1.3); POTASSIUM - SERUM 3.9 mmol/L (3.5-5.1)
[2017-08-03 08:25] VITALS: BP 116/72
[2017-08-03 12:21] VITALS: BP 118/77
[2017-08-03 15:29] VITALS: BP 110/64
[2017-08-03 20:00] VITALS: BP 139/84
[2017-08-04] VITALS: BP 129/72
[2017-08-04 04:00] VITALS: BP 173/65
[2017-08-04 05:49] LABS: BASOPHILS 0 % (0-2); EOSINOPHILS 0 % (0-7); HEMATOCRIT 31.5 % (36.0-48.0); IMMATURE GRANULOCYTES 0.2 % (0-5); LYMPHOCYTES 4.5 % (15-50); MCH 28.9 pg (26.0-34.0); MCHC 31.7 g/dL (31.0-37.0); MEAN PLATELET VOLUME 9.4 fL (7.4-10.4); MONOCYTES 4.1 % (2-11); NEUTROPHILS 91.2 % (40-80); PLATELET COUNT 246 10x3/uL (130-400); RBC 3.46 10x6/uL (4.00-5.40); RDW 14.1 % (11.5-14.5); WBC 12.8 10x3/uL (4.8-10.8)
[2017-08-04 06:11] LABS: ALBUMIN 2.7 g/dL (3.4-5.0); ANION GAP 12.4 mmol/L (8-16); BILIRUBIN - TOTAL 0.3 mg/dL (0.2-1.3); CALCIUM 8.9 mg/dL (8.5-10.1); CREATININE - SERUM 0.8 mg/dL (0.6-1.3); POTASSIUM - SERUM 4.4 mmol/L (3.5-5.1); PROTEIN - SERUM 6.7 g/dL (6.4-8.2)
[2017-08-04 08:02] VITALS: BP 133/60
[2017-08-04 12:56] VITALS: BP 141/64
[2017-08-04 14:14] VITALS: BMI 43.1
[2017-08-04 15:08] VITALS: BP 132/69
[2017-08-04 20:00] VITALS: BP 115/47
[2017-08-05] VITALS: BP 112/53
[2017-08-05 04:00] VITALS: BP 124/56
[2017-08-05 05:14] LABS: BASOPHILS 0 % (0-2); EOSINOPHILS 0 % (0-7); HEMOGLOBIN 10.5 g/dL (12-16); IMMATURE GRANULOCYTES 0.4 % (0-5); LYMPHOCYTES 7.8 % (15-50); MCH 29.4 pg (26.0-34.0); MCHC 31.8 g/dL (31.0-37.0); MCV 92.4 fL (80.0-100.0); MEAN PLATELET VOLUME 9.5 fL (7.4-10.4); NEUTROPHILS 85.8 % (40-80); RBC 3.57 10x6/uL (4.00-5.40); RDW 14.1 % (11.5-14.5); WBC 10.9 10x3/uL (4.8-10.8)
[2017-08-05 05:21] LABS: PLATELET COUNT 305 10x3/uL (130-400)
[2017-08-05 05:30] LABS: ALBUMIN 2.9 g/dL (3.4-5.0); ANION GAP 8.7 mmol/L (8-16); BILIRUBIN - TOTAL 0.24 mg/dL (0.2-1.3); CALCIUM 9.1 mg/dL (8.5-10.1); CARBON DIOXIDE 34.3 mmol/L (21.0-32.0); CREATININE - SERUM 0.8 mg/dL (0.6-1.3); PROTEIN - SERUM 7.1 g/dL (6.4-8.2)
[2017-08-05 07:49] VITALS: BP 135/58
[2017-08-05 11:22] VITALS: BP 113/59
[2017-08-05 15:22] VITALS: BP 143/72
[2017-08-05 20:00] VITALS: BP 138/71
[2017-08-06 04:00] VITALS: BP 150/83
[2017-08-06 07:04] LABS: BASOPHILS 0 % (0-2); EOSINOPHILS 0 % (0-7); HEMATOCRIT 35.3 % (36.0-48.0); HEMOGLOBIN 11.2 g/dL (12-16); IMMATURE GRANULOCYTES 0.5 % (0-5); LYMPHOCYTES 9.8 % (15-50); MCH 29.2 pg (26.0-34.0); MCHC 31.7 g/dL (31.0-37.0); MCV 92.2 fL (80.0-100.0); MEAN PLATELET VOLUME 9.5 fL (7.4-10.4); MONOCYTES 3.9 % (2-11); NEUTROPHILS 85.8 % (40-80); PLATELET COUNT 283 10x3/uL (130-400); RBC 3.83 10x6/uL (4.00-5.40); RDW 14.2 % (11.5-14.5)
[2017-08-06 07:09] LABS: WBC 6.4 10x3/uL (4.8-10.8)
[2017-08-06 07:12] LABS: ALBUMIN 3.2 g/dL (3.4-5.0); ANION GAP 10.8 mmol/L (8-16); BILIRUBIN - TOTAL 0.31 mg/dL (0.2-1.3); CALCIUM 9.3 mg/dL (8.5-10.1); CREATININE - SERUM 0.8 mg/dL (0.6-1.3); POTASSIUM - SERUM 3.8 mmol/L (3.5-5.1); PROTEIN - SERUM 7.3 g/dL (6.4-8.2)
[2017-08-06 07:59] VITALS: BP 166/70
[2017-08-06 11:35] VITALS: BP 151/70
[2017-08-06 15:33] VITALS: BP 97/76
[2017-08-06 20:00] VITALS: BP 125/69
[2017-08-07 04:00] VITALS: BP 151/90
[2017-08-07 06:00] LABS: BASOPHILS 0 % (0-2); EOSINOPHILS 0 % (0-7); HEMATOCRIT 35.1 % (36.0-48.0); HEMOGLOBIN 11.2 g/dL (12-16); IMMATURE GRANULOCYTES 0.9 % (0-5); LYMPHOCYTES 11.9 % (15-50); MCH 29.2 pg (26.0-34.0); MCHC 31.9 g/dL (31.0-37.0); MCV 91.4 fL (80.0-100.0); MEAN PLATELET VOLUME 9.6 fL (7.4-10.4); MONOCYTES 7.9 % (2-11); NEUTROPHILS 79.3 % (40-80); PLATELET COUNT 276 10x3/uL (130-400); RBC 3.84 10x6/uL (4.00-5.40); RDW 14.1 % (11.5-14.5); WBC 7.5 10x3/uL (4.8-10.8)
[2017-08-07 06:28] LABS: ALKALINE PHOSPHATASE 71 U/L (46-116); ALT (SGPT) 49 U/L (10-68); CALC OSMOLALITY 289 mosm/kg (275-300); CALCIUM 9.4 mg/dL (8.5-10.1); CARBON DIOXIDE 31.1 mmol/L (21.0-32.0); CHLORIDE - SERUM 103 mmol/L (98-107); CREATININE - SERUM 0.7 mg/dL (0.6-1.3); GLUCOSE 180 mg/dL (74-106); PROTEIN - SERUM 6.8 g/dL (6.4-8.2); SODIUM 141 mmol/L (136-145); UREA NITROGEN 24 mg/dL (7-18); eGFR NON AFRICAN AMERICAN 86 mL/min (90-120)
[2017-08-07 06:29] LABS: POTASSIUM - SERUM 4.4 mmol/L (3.5-5.1)
[2017-08-07 08:35] VITALS: BP 132/75
[2017-08-07 09:17] VITALS: Ht 154.9 cm; Wt 104.5 kg
[2017-08-07 11:42] VITALS: BP 111/54
[2017-08-07 15:40] VITALS: BP 163/75
[2017-08-07 20:00] VITALS: BP 108/42
[2017-08-07 22:15] VITALS: BP 124/53
[2017-08-08] VITALS (7 sets, daily range): BP systolic 111–139; BP diastolic 49–473
[2017-08-08 06:25] LABS: BASOPHILS 0.2 % (0-2); EOSINOPHILS 0.3 % (0-7); HEMATOCRIT 37.1 % (36.0-48.0); HEMOGLOBIN 11.9 g/dL (12-16); IMMATURE GRANULOCYTES 2.2 % (0-5); LYMPHOCYTES 14.3 % (15-50); MCH 29.4 pg (26.0-34.0); MCHC 32.1 g/dL (31.0-37.0); MCV 91.6 fL (80.0-100.0); MEAN PLATELET VOLUME 9.5 fL (7.4-10.4); MONOCYTES 8.8 % (2-11); NEUTROPHILS 74.2 % (40-80); PLATELET COUNT 327 10x3/uL (130-400); RBC 4.05 10x6/uL (4.00-5.40); RDW 14.3 % (11.5-14.5)
[2017-08-08 06:27] LABS: WBC 11.7 10x3/uL (4.8-10.8)
[2017-08-08 06:39] LABS: ALBUMIN 3.2 g/dL (3.4-5.0); ANION GAP 10.9 mmol/L (8-16); BILIRUBIN - TOTAL 0.3 mg/dL (0.2-1.3); CALCIUM 9.1 mg/dL (8.5-10.1); CARBON DIOXIDE 33.3 mmol/L (21.0-32.0); CREATININE - SERUM 0.8 mg/dL (0.6-1.3)
[2017-08-08 06:42] LABS: POTASSIUM - SERUM 3.2 mmol/L (3.5-5.1)
[2017-08-09 01:50] VITALS: BP 133/78
[2017-08-09 05:25] VITALS: BP 140/70
[2017-08-09 08:35] VITALS: BP 116/65
[2017-08-09 12:00] VITALS: BP 131/61
[2017-08-09 17:02] VITALS: BP 142/67
[2017-08-09 20:50] VITALS: BP 114/97
[2017-08-10 01:31] VITALS: BP 143/56
[2017-08-10 05:41] VITALS: BP 145/69
[2017-08-10 09:09] VITALS: BP 112/61
[2017-08-10 12:00] VITALS: BP 144/69
[2017-08-10 17:23] VITALS: BP 127/61
[2017-08-10 22:05] VITALS: BP 132/50
[2017-08-11 02:28] VITALS: BP 141/74
[2017-08-11 05:22] VITALS: BP 142/71
[2017-08-11 07:21] LABS: ANION GAP 8.8 mmol/L (8-16); CALCIUM 9.6 mg/dL (8.5-10.1); CARBON DIOXIDE 37.5 mmol/L (21.0-32.0); CREATININE - SERUM 0.9 mg/dL (0.6-1.3); POTASSIUM - SERUM 3.3 mmol/L (3.5-5.1)
[2017-08-11 08:20] VITALS: BP 102/52
[2017-08-11] MEDS ORDERED: CARDIZEM CD240 MG PO (10:11)
[2017-08-11] MEDS ORDERED: LANOXIN125 MCG PO (10:11)
[2017-08-11] MEDS ORDERED: SINGULAIR10 MG PO (10:12)
[2017-08-11] MEDS ORDERED: MUCINEX600 MG PO (10:13)
[2017-08-11] MEDS ORDERED: MEDROL DOSE PACK4 MG PO (10:14)
[2017-08-11] MEDS ORDERED: ELIQUIS2.5 MG PO (10:24)
[2017-08-11 11:24] VITALS: BP 132/72
== END 2017-08-11 11:49 | disposition home health service (06) | DRG 193 ==
LOC: D.ER 17:45 → D.M2 20:08 → D.ICU 20:08 → D.EDHOLD 20:08 → D.ICU 23:09 → D.M2 08-03 02:52
PROVIDERS: Emergency Medicine; Family Medicine
PROC: 5A09457 Assistance with Respiratory Ventilation, 24-96 Consecutive Hours, Continuous Positive Airway Pressure (ICD-10-PCS; principal; 2017-08-02)
PROC: 5A09557 Assistance with Respiratory Ventilation, Greater than 96 Consecutive Hours, Continuous Positive Airway Pressure (ICD-10-PCS; 2017-08-06)
DX: J18.9 Pneumonia, unspecified organism (principal); J96.21 Acute and chronic respiratory failure with hypoxia; I50.23 Acute on chronic systolic (congestive) heart failure; J44.1 Chronic obstructive pulmonary disease with (acute) exacerbation; I48.92 Unspecified atrial flutter; I11.0 Hypertensive heart disease with heart failure; I27.20 Pulmonary hypertension, unspecified; Z66 Do not resuscitate; Z87.891 Personal history of nicotine dependence; I08.1 Rheumatic disorders of both mitral and tricuspid valves

== ENCOUNTER 2017-08-23 15:43 | Inpatient (IN) | payer MEDICARE, BC ==
[~2017-08-23] VITALS: Ht 154.9 cm; Wt 99.3 kg
--- NOTE | ~2017-08-23 | HEMODYNAMI ---
PATIENT:CHIKA CHAPPELL MEDICAL RECORD: [id number] : [birth year] LOCATION:[address] ADMISSION DATE: 08/23/17 Generatedon:08/25/20178:15 Patient name: CHIKA CHAPPELL Patient #: [id number] SSN: DO B: 1940 Date of study: 08/25/2017 Page: Of Hemodynamic Procedure Report Patient Data Patient Demographics Procedure consent was obtained First Name: CHIKA Gender: Female Last Name: TA : 1940 [facility] Initial: L Age: 77 year(s) Patient #: [id number] Race: Unknown Additional ID: [id number] Contact details Address: [address] [place] [address] State: [place] City: [place] Zip code: [address] Admission Admission Data Admission Date: 08/23/2017 Admission Time: 20:32 Room #: 2125 Procedure Procedure Types Cath Procedure Diagnostic Procedure Cardioversion External Procedure Description Procedure Date Procedure Date: 08/25/2017 Procedure Start Time: 8:05 Procedure End Time: 8:14 Procedure Staff Name Function Silviano Mederos MD Performing Physician Yoni Garcia Additional personnel Rito Greenberg RT Monitor Sonu Ag RN Nurse Aby Oglesby RT Construction Project Mgr Pineda Farrar RT Construction Project Mgr Procedure Data Cath Procedure Fluoroscopy Diagnostic fluoroscopy Total fluoroscopy Time: 0 time: 0 min min Diagnostic fluoroscopy Total fluoroscopy dose: 0 dose: 0 mGy mGy Contrast Material Contrast Material Type Amount (ml) Isovue 300 0 Estimated blood loss: 10 ml Procedure Complications No complications Procedure Medications Medication Administration Route Dosage Oxygen NC 3 l/min Refer to Anesthesia Notes for Sedation Medications Hemodynamics Rest Heart Rate: 81 (bpm) Snapshots Pre Cath Intra NCS Post Cath Vital Signs Time Heart Resp SPO2 etCO2 NIBP Rhythm Pain Sedation Rate (ipm) (%) (mmHg) (mmHg) Status Level (bpm) 8:00:26 84 28 97 27.6 Time A-Flutter 0 (11) 10(A) Exceeded , No pain 8:03:40 71 25 99 29.9 122/52(86) A-Flutter 0 (11) 10(A) , No pain 8:08:10 68 12 93 39.6 104/51(89) SB 0 (11) 9(A) , No pain 8:11:27 96 21 97 25.4 118/45(80) SB 0 (11) 10(A) , No pain Medications Time Medication Route Dose Verified Delivered Reason Notes Effectivene ss by by 7:54:45 Oxygen NC 3 Silvianodonavon Ascencio used for l/min Gatito Ag RN procedure 7:54:49 Refer to Silviano Ascencio Anesthesia Gatito Ag RN Notes for Sedation Medications Procedure Log Time Note 7:35:25 Pineda Farrar RT(R) sent for patient. Start room use. 7:50:39 Time tracking: Regular hours (M-F 7:00 - 5:00) 7:50:44 Plan of Care:Hemodynamics will remain stable., Cardiac rhythm will remain stable., Comfort level will be maintained., Respiratory function will remain adequate., Patient/ family verbilizes understanding of procedure., Procedure tolerated without complication., Recovers from procedure without complications.. 7:50:52 Yoni Garcia present and monitoring patient for TIVA. 7:54:20 Patient arrived from PCU to CCL 3. Patient remains on bed/stretcher for procedure. 7:54:21 Warm blankets applied, and juno hugger turned on for patient comfort. 7:54:22 Correct patient and procedure confirmed by team. 7:54:23 Signed procedure consent form obtained from patient. 7:54:23 ECG and BP/O2 sat monitors applied to patient. 7:54:45 Oxygen 3 l/min NC was administered by Sonu Ag RN; used for procedure; 7:54:49 Refer to Anesthesia Notes for Sedation Medications was administered by Sonu Ag RN; ; 7:56:51 Baseline sample Acquired. 7:57:12 Vital chart was started 7:57:17 Rhythm: atrial flutter 7:57:18 Full Disclosure recording started 7:57:32 H&P Date Dictated: 08/23/2017 Within 30 days and on chart.. 7:57:33 Pre-procedure instructions explained to patient. 7:57:33 Pre-op teaching completed and patient verbalized understanding. 7:57:36 Family in patients room. 7:57:37 Patient NPO since Midnight. 7:57:38 Is the patient allergic to Iodine/contrast media? No. 7:57:39 Is patient on blood thinner?Yes 7:57:42 ACC The patient was administered the following blood thiners within the last 24 hours: Jorge 7:57:46 Patient diabetic? Yes. 7:57:47 If diabetic: On Metformin? Yes 7:57:48 If on Metformin: Last Dose? 08/24/2017 7:57:51 Previous problem with sedation/anesthesia? No ? 7:57:52 Snore? Yes 7:57:53 Sleep apnea? No 7:57:54 Deviated septum? No 7:57:54 Opens mouth fully? Yes 7:57:55 Sticks out tongue? Yes 7:57:59 Airway obstruction? Yes COPD 7:58:12 Dentures? Yes OUT 7:58:17 Patient pain scale 0/10 ?. 7:58:32 IV patent on arrival in right antecubital with 0.9% NaCl at KVO. 7:58:34 Lab results completed and on chart. 7:58:36 Alarms reviewed by Diego Ribeiro 8:00:19 IV Extension Set opened to sterile field. 8:00:24 --------ALL STOP TIME OUT------ 8:00:25 Final Timeout: patient, procedure, and site verified with staff and physician. All members of the team are in agreement. 8:00:33 Physical assessment completed. ASA score P 2 - A patient with mild systemic disease as per Silviano Mederos MD. 8:00:43 Sedation plan: TIVA Medication:Propofol 8:00:45 Quick Combo opened to sterile field. 8:02:33 Quick combo pads placed on patients chest and back. 8:05:06 Procedure started. 8:05:10 Defibrillator synced and charged to 200 Joules. 8:05:15 Shock delivered. 8:06:09 Patient cardioverted to sinus rhythm . 8:06:13 Procedure ended.(Physican Out) 8:06:50 Fluoroscopy time 00.00 minutes. 8:06:51 Flurop Dose total: 0 8:06:52 Fluoroscopy dose: 0 mGy 8:06:53 Contrast amount:Isovue 300 0ml. 8:07:25 Post-procedure physical assessment completed. ASA score P 2 - A patient with mild systemic disease as per Silviano Mederos MD. 8:07:31 Post procedure rhythm: sinus rhythm 8:07:34 Estimated blood loss: 10 ml 8:07:36 Post procedure instruction explained to patient.Patient verbalizes understanding. 8:07:37 Patient needs reinforcement of post procedure teaching. 8:07:45 Procedure and supply charges have been captured, reviewed, submitted and are correct. 8:07:49 Procedure Complication : No complications 8:13:16 Vital chart was stopped 8:13:17 See physician's report for complete and final results. 8:13:22 Report given to PCU. 8:13:27 Patient transfered to PCU with Bed. 8:14:48 Procedure ended. 8:14:48 Full Disclosure recording stopped 8:14:59 End room use (Document Last) Device Usage Item Name Manufacture Quantity Catalog Hospital Part Current Minimal Lot# / Number Charge Number Stock Stock Serial# Code IV Hospira 1 [id number] 5 Extension Set Rounds 1 [id number] Combo Signature Audit [place] Stage Time Signature Unsigned Intra-Procedure 08/25/2017 Rito Greenberg 8:15:26 AM RT(R) Signatures Monitor : Rito Greenberg RT Signature : Date : Time : [address] [address]
--- NOTE | ~2017-08-23 | CN ---
PATIENT NAME:CHIKA BONILLA MEDICAL RECORD: [id number] : 38 LOCATION:D. D.2125 ADMIT DATE: 08/23/17 ACCOUNT: [id number] CONSULTING PHYSICIAN: FLOYD CLAYTON MD REFERRING PHYSICIAN: KELY SÁNCHEZ MD DATE OF CONSULTATION: 08/25/2017 CONSULT REQUESTING PHYSICIAN: Kely Sánchez MD REASON FOR CONSULTATION: Acute exacerbation of COPD, congestive heart failure, bilateral pleural effusion, atrial fibrillation. HISTORY OF PRESENT ILLNESS: Ms. Bonilla is a 77-year-old female very well known to me. The patient has worsening shortness of breath for the last few days. The patient came into the ER. The patient was in AFib. She was cardioverted today but now back into atrial flutter and fibrillation. She has shortness of breath with mild exertion. There is no fever and chill. No night sweats. REVIEW OF THE SYSTEMS: Mainly in the history of present illness. PAST MEDICAL HISTORY: 1. COPD. 2. Chronic hypoxic respiratory failure. 3. Mild pulmonary hypertension secondary to congestive heart failure and severe COPD. 4. Congestive heart failure consistent with chronic diastolic dysfunction. 5. Diabetes mellitus. 6. Hypertension. PAST SURGICAL HISTORY: She has tubal ligation. ALLERGIES: SHE IS ALLERGIC TO PENICILLIN. MEDICATIONS: [employer] was reviewed. PERSONAL AND SOCIAL HISTORY: The patient is an ex-smoker. She is nondrinker. FAMILY HISTORY: Noncontributory. PHYSICAL EXAMINATION: GENERAL: Now, the patient is lying comfortably in bed. She is not in acute distress. VITAL SIGNS: The blood pressure is 128/66, pulse is 72, respiration is 18, temperature is 97.3, SpO2 is 95% on 4 liters nasal cannula. HEENT: Conjunctivae are pink. Sclerae are not icteric. NECK: Neck is supple. CHEST: The chest excursion is minimal with bilateral crackles. Wheeze on forceful expiration. HEART: Rhythm regular. Normal sound. No murmur. ABDOMEN: Abdomen is soft. Bowel sounds present. No hepatosplenomegaly. RECTAL: Deferred. EXTREMITIES: No cyanosis. No clubbing. No pedal edema. SKIN: The skin is warm. Normal turgor. CENTRAL NERVOUS SYSTEM: The patient is awake and alert. There is no obvious CONSULT REPORT [id number] CHIKA BONILLA cranial nerve abnormality. The gait was not tested. CTA of the chest: There are bilateral pleural effusions. There is moderate-size pericardial effusion. OTHER LABORATORY DATA: CBC; WBC 16,000, hemoglobin 11.1, hematocrit 33.3, platelet count 176. Chemistry; sodium 133, potassium 3.3, BUN is 28, creatinine is 1.2. ProBNP is 4320. IMPRESSION: 1. Twukz-lh-svymyia hypoxic respiratory failure. 2. COPD acute exacerbation secondary to CHF. 3. Atrial fibrillation. 4. Congestive heart failure. 5. Pericardial effusion. 6. Bilateral small pleural effusion. 7. Leukocytosis. RECOMMENDATIONS: 1. Diuretics. Change the nebulizer to Xopenex and ipratropium nebulizer. Start Brovana and budesonide nebulizer. 2. Supplemental oxygen. 3. The patient can use her BiPAP machine at night and during the day as required. 4. Followup labs and chest radiograph. Dr. Sánchez, thank you for involving me in the care of Ms. Bonilla. TRANSINT:[id number] Voice Confirmation ID: [id number] DOCUMENT ID: [id number] FLOYD CLAYTON MD at 1806 CC: KELY SÁNCHEZ MD [id number] DICTATION DATE: 08/25/17 1544 SPOOL HAULER: 08/25/171910 ADM IN [facility] [address] [place] [address]
--- NOTE | ~2017-08-23 | HP ---
PATIENT: CHIKA CHAPPELL MEDICAL RECORD: [id number] ACCOUNT: [id number] LOCATION:[address] : 39 ADMISSION DATE: 08/23/17 HISTORY AND PHYSICAL EXAMINATION DATE OF ADMISSION: 08/23/2017 CHIEF COMPLAINT: Shortness of breath, getting worse for the last couple of weeks. HISTORY OF PRESENT ILLNESS: This is a 77-year-old female with a history of severe O2-dependent COPD, CHF, recent diagnosis of AFib/flutter, was just discharged from the hospital approximately 10-14 days ago, she developed AFib/flutter in the end. She was discharged home on Lanoxin and Cardizem as well as Eliquis. She felt like the Lasix has not been helping over the last few days, she has had increased lower extremity edema and weight gain. She denies any chest pain. Her last echo was done last admission showing left ventricle mildly globally hypokinetic with EF of 40% to 45% with mild MR and trace TR. Her urinalysis looks infected. Her D-dimer was elevated. She is admitted for further evaluation and treatment. PAST MEDICAL HISTORY: 1. Severe O2-dependent COPD. 2. Congestive heart failure. 3. Macular degeneration. 4. Hypertension. 5. Depression. 6. Diabetes. 7. Recent diagnosis of AFib/flutter. PAST SURGICAL HISTORY: Bilateral tubal ligation. ALLERGIES: PENICILLIN. HOME MEDICATIONS: Lanoxin 0.125 mg once a day, Cardizem-CD 240 once a day, Singulair 10 mg once a day, Eliquis 2.5 mg twice a day, losartan 25 mg once a day, Lasix 40 twice a day, Lozol 2.5 once a day, potassium 20 mEq 3 times a day, metformin 500 mg twice a day, Advair 500/50 one inhalation twice a day. FAMILY HISTORY: Parents with heart disease and lung disease. SOCIAL HISTORY: Retired, lives with her son. HABITS: Former smoker, no alcohol or drugs. REVIEW OF SYSTEMS: GENERAL: No major weight changes until the last few days when she has gained some weight. HEENT: No particular sinus or allergy problems. RESPIRATORY: Has O2-dependent COPD. CARDIAC: Has a history of CHF and AFib/flutter. GASTROINTESTINAL: No significant reflux. No diarrhea or constipation on a regular basis. GENITOURINARY: No significant problems there. MUSCULOSKELETAL: Has arthritis. HISTORY AND PHYSICAL [id number] CHIKA CHAPPELL NEUROLOGIC: No migraines or seizures. PSYCHIATRIC: Denies depression or melancholia. PHYSICAL EXAMINATION: VITAL SIGNS: Temperature at 1544 today showed 102.0, pulse 82, respirations 28, blood pressure 119/54, later her heart rate has been in the lower 90s, respirations 20, blood pressure 132/51. GENERAL: She is morbidly obese, no acute distress. HEENT: Grossly within normal limits. NECK: Supple. No bruits. HEART: Regular rate and rhythm at this time. No murmur. LUNGS: Diminished breath sounds in the bases bilaterally. ABDOMEN: Obese, nontender. EXTREMITIES: Trace if any edema. LABORATORY DATA: EKG shows atrial flutter. UA: Dark yellow, hazy, specific gravity 1.005, 2+ blood, 2+ leukocyte esterase, 0-5 epithelial cells, moderate bacteria. CBC with a white count of 16,000, hemoglobin 11.1, hematocrit 33.3, platelets 176,000. Basic metabolic panel is okay except BUN 28, creatinine 1.1, glucose 209. Liver functions were okay. ProBNP 4320, D-dimer elevated at 1.43. INR 1.25. Lactic acid level 1.6. Chest X-Ray: Trace to small bilateral pleural effusions, mild cardiomegaly. CTA of the chest with PE protocol showed no PE, moderate pericardial effusion, no pneumonia. IMPRESSION: 1. Pericardial effusion. 2. Jobua-fu-wakwghm congestive heart failure. 3. Urinary tract infection. 4. Diarrhea. PLAN: Urine culture is done. We will try to diurese. Cardiology consult tomorrow. Other tests and procedures as warranted. TRANSINT:[id number] Voice Confirmation ID: [id number] DOCUMENT ID: [id number] HISTORY AND PHYSICAL [id number] CHIKA CHAPPELL WILLIAM MD at 2044 CC: [id number] DICTATION DATE: 08/23/175 RAT BREEDER: 08/24/17 0149 ADM IN [facility] [id number] [place] [address]
--- NOTE | ~2017-08-23 | HEMODYNAMI ---
PATIENT:CHIKA CHAPPELL MEDICAL RECORD: [id number] : 38 LOCATION:[address] ADMISSION DATE: 08/23/17 Generatedon:08/28/201711:32 Patient name: CHIKA CHAPPELL Patient #: [id number] SSN: DO B: 1940 Date of study: 08/28/2017 Page: Of Hemodynamic Procedure Report Patient Data Patient Demographics Procedure consent was obtained First Name: CHIKA Gender: Female Last Name: TA : 1940 [facility] Initial: L Age: 77 year(s) Patient #: [id number] Race: Unknown Additional ID: [id number] Contact details [address]: [address] [place] [address] State: [place] City: [place] Zip code: [address] Past Medical History Allergies Allergen Reaction Date Comments Reported Other allergy 08/28/2017 PCN Admission Admission Data Admission Date: 08/23/2017 Admission Time: 20:32 Room #: [facility] Procedure Procedure Types Cath Procedure Diagnostic Procedure Right Heart Right Heart Cath Procedure Description Procedure Date Procedure Date: 08/28/2017 Procedure Start Time: 11:12 Procedure End Time: 11:29 Procedure Staff Name Function Silviano Mederos MD Performing Physician Pineda Farrar RT Monitor Sofía Bergman RT Scrub Van Lemus RN Nurse Procedure Data Cath Procedure Fluoroscopy Diagnostic fluoroscopy Total fluoroscopy Time: 3 time: 3 min min Diagnostic fluoroscopy Total fluoroscopy dose: 114 dose: 114 mGy mGy Contrast Material Contrast Material Type Amount (ml) Isovue 300 0 Entry Location Entry Primary Successful Side Size Upsize Upsize Entry Closure Styles ccessful Closure Location (Fr) 1 (Fr) 2 (Fr) Remarks Device Remarks Femoral Right 7 Fr Manual vein Short Compression Estimated blood loss: 5 ml Diagnostic catheters Device Type Used For End Catheter Placement SWAN 7Fr Thermodilution Procedure cather (131F7P) Procedure Complications No complications Procedure Medications Medication Administration Route Dosage 0.9% NaCl I.V. 100 ml/hr Oxygen NRB 4 l/min Heparin Flush Bag added to field 2 bags (1000units/500ml NS) Lidocaine 1% added to field 20 Versed I.V. 1 mg Fentanyl I.V. 50 mcg Fentanyl I.V. 50 mcg Hemodynamics Rest Heart Rate: 67 (bpm) Pressure Samples Time Site Value (mmHg) Purpose Heart Use Rate(bpm) 11:17 PA 65/23(36) Snapshot 66 11:18 PCW 20/34(22) Snapshot 67 11:18 RV 61/7,16 Snapshot 66 11:19 RA 17/18(14) Snapshot 66 11:19 RA 17/19(15) Snapshot 65 Snapshots Pre Cath Intra NCS Post Cath Vital Signs Time Heart Resp SPO2 etCO2 NIBP Rhythm Pain Sedation Rate (ipm) (%) (mmHg) (mmHg) Status Level (bpm) 11:05:18 66 25 96 0 137/48(95) NSR 0 (11) 10(A) , No pain 11:10:11 66 24 95 0 124/50(83) NSR 0 (11) 10(A) , No pain 11:15:04 68 23 96 0 132/47(98) NSR 0 (11) 10(A) , No pain 11:19:55 66 20 94 0 128/53(85) NSR 0 (11) 10(A) , No pain 11:24:48 66 23 97 0 134/54(95) NSR 0 (11) 10(A) , No pain 11:29:39 66 16 96 0 133/47(96) NSR 0 (11) 10(A) , No pain Medications Time Medication Route Dose Verified Delivered Reason Notes Effe ctiveness by by 11:03:24 0.9% NaCl I.V. 100 Van Van Per ml/hr Mariah Lemus physician RN RN 11:03:35 Oxygen NRB 4 Van Van Per l/min Mariah Lemus physician RN RN 11:03:48 Heparin Flush added 2 Van Van used for Bag to bags Mariah Lemus procedure (1000units/500ml field RN RN NS) 11:04:02 Lidocaine 1% added 20ml Van Van for local to vial Lorigan Lorigan anesthetic field RN RN 11:12:40 Versed I.V. 1 mg Van Van for Lorigan Lorigan sedation RN RN 11:12:49 Fentanyl I.V. 50 Van Bolañosothy for mcg Lorigan Lorigan sedation RN RN 11:25:08 Fentanyl I.V. 50 Van Van for mcg Lorigan Lorigan sedation RN baker helper Log Time Note 10:34:35 Van Lemus RN sent for patient. Start room use. 10:34:36 Time tracking: Regular hours (M-F 7:00 - 5:00) 10:34:40 Plan of Care:Hemodynamics will remain stable., Cardiac rhythm will remain stable., Comfort level will be maintained., Respiratory function will remain adequate., Patient/ family verbilizes understanding of procedure., Procedure tolerated without complication., Recovers from procedure without complications.. 10:35:39 H&P Date Dictated: 08/23/2017 Within 30 days and on chart., H&P Addendum completed by physician on day of procedure. (MUST COMPLETE FOR ALL OUTPATIENTS). 10:35:53 Patient allergic to Other allergyPCN 10:48:33 Patient received from Med II to CCL 1 Alert and oriented. Tansferred to table in Supine position. 10:48:35 Warm blankets applied, and juno hugger turned on for patient comfort. 10:49:03 Correct patient and procedure confirmed by team. 10:49:06 Signed procedure consent form obtained from patient. 10:49:07 Pre-procedure instructions explained to patient. 10:49:07 Pre-op teaching completed and patient verbalized understanding. 10:49:09 Family in waiting room. 10:49:10 Patient NPO since Midnight. 11:03:24 0.9% NaCl 100 ml/hr I.V. was administered by Van Lemus RN; Per physician; 11:03:35 Oxygen 4 l/min NRB was administered by Van Lemus RN; Per physician; 11:03:48 Heparin Flush Bag (1000units/500ml NS) 2 bags added to field was administered by Van Lemus RN; used for procedure; 11:04:02 Lidocaine 1% 20ml vial added to field was administered by Van Lemus RN; for local anesthetic; 11:04:09 Vital chart was started 11:06:52 ECG and BP/O2 sat monitors applied to patient. 11:06:57 Baseline sample Acquired. 11:07:22 Rhythm: sinus rhythm 11:07:23 Full Disclosure recording started 11:07:26 Is the patient allergic to Iodine/contrast media? No. 11:07:27 Is patient on blood thinner?No 11:07:28 Patient diabetic? Yes. 11:07:29 If diabetic: On Metformin? Yes 11:07:40 Previous problem with sedation/anesthesia? No ? 11:07:41 Snore? Yes 11:07:43 Sleep apnea? Yes 11:07:44 Deviated septum? No 11:07:45 Opens mouth fully? Yes 11:07:46 Sticks out tongue? Yes 11:07:48 Airway obstruction? Yes COPD 11:07:51 Dentures? No ? 11:07:56 Patient pain scale 0/10 ?. 11:08:02 IV patent on arrival in right antecubital with 0.9% NaCl at [facility]. 11:11:25 Lab results completed and on chart. 11:11:27 Right groin area was prepped with chlora-prep and draped in sterile fashion 11:11:28 Alarms reviewed by R. N. 11:11:28 Sharps counted by scrub and verified by R.N. 11:11:42 ACIST Syringe (35950) opened to sterile field. 11:11:42 Bag Decanter (2002S) opened to sterile field. 11:11:42 Medline Cath Pack ([id number]) opened to sterile field. 11:11:43 ACIST Hand Control (39884) opened to sterile field. 11:11:44 ACIST Manifold (90006) opened to sterile field. 11:11:45 Tegaderm 4 x 4 (1626W) opened to sterile field. 11:11:58 SHEATH 7FR [place] (GAQ726) opened to sterile field. 11:12:19 Physician arrived 11:12:20 --------ALL STOP TIME OUT------ 11:12:20 Final Timeout: patient, procedure, and site verified with staff and physician. All members of the team are in agreement. 11:12:23 Right groin site verified by team. 11:12:26 Physical assessment completed. ASA score P 3 - A patient with severe systemic disease as per Silviano Mederos MD. 11:12:30 Sedation plan: IV Moderate Sedation Medication:Versed, Fentanyl 11:12:34 Procedure started. 11:12:40 Versed 1 mg I.V. was administered by Van Lemus RN; for sedation; 11:12:42 Local anesthetic to right femoral vein with Lidocaine 1% by Silviano Mederos MD.INITIAL ACCESS ONLY 11:12:49 Fentanyl 50 mcg I.V. was administered by Van Lemus RN; for sedation; 11:12:53 A 7 Fr Short sheath was inserted into the Right Femoral vein 11:13:58 A SWAN 7Fr Thermodilution cather (131F7P) was advanced over the wire and used for Procedure. 11:14:03 Zero performed for pressure channel P1 11::23 Catheter removed. 11::44 Sheath removed intact; hemostasis achieved with Manual Compression to the Right Femoral vein. 11::47 Procedure ended.(Physican Out) 11:24:01 Fluoroscopy time 03.00 minutes. 11:24:14 Fluoroscopy dose: 114 mGy 11:24:14 Flurop Dose total: 114 11::17 Contrast amount:Isovue 300 0ml. 11:24:18 Sharps counted by scrub and verified by R.N. 11:24:24 Insertion/operative site no bleeding no hematoma. 11:24:28 Post-op/insertion site Right Femoral vein dressed using a 4 x 4 and Tegaderm. 11:24:33 Post right femoral vein:stable, soft, clean and dry 11:24:34 Post Procedure Pulses reassessed and unchanged 11:24:49 Post-procedure physical assessment completed. ASA score P 3 - A patient with severe systemic disease as per Silviano Mederos MD. 11:25:08 Fentanyl 50 mcg I.V. was administered by Van Lemus RN; for sedation; 11:26:26 Post procedure rhythm: unchanged. 11:26:46 Estimated blood loss: 5 ml 11::47 Post procedure instruction explained to patient.Patient verbalizes understanding. 11::48 Patient needs reinforcement of post procedure teaching. 11:28:20 Procedure and supply charges have been captured, reviewed, submitted and are correct. 11:28:24 Procedure Complication : No complications 11:29:17 Vital chart was stopped 11::18 See physician's report for complete and final results. 11::22 Report given to PCU. 11::25 Patient transfered to PCU with Stretcher. 11:29:28 Procedure ended. 11:29:28 Full Disclosure recording stopped 11:29:34 End room use (Document Last) Device Usage Item Name Manufacture Quantity Catalog Hospital Part Current Minima l Lot# / Number Charge Number Stock Stock Serial# Code ACIST Syringe Acist 1 68099 666609 [id number] 20 (76992) [employer] Bag Decanter Microtek 1 2001S 358492 56254 [id number] 5 (2001S) Medical Inc. Medline Cath Cardinal 1 [id number] 993159 51246 479536 5 Pack Health ([id number]) ACIST Hand Acist 1 01652 328080 841111 482184 5 Control Medical (41131) Systems Inc ACIST Manifold Acist 1 04541 492281 237348 416210 5 (20625) [employer] Systems Inc Tegaderm 4 x 4 3M 1 1626W 050406 747243 393718 5 (1626W) SHEATH 7FR Terumo 1 [id number] 045381 533709 990737 5 [place] (PLT945) SWAN 7Fr Curz 1 131F7P 216775 93619 725143 3 Thermodilution [employer]ciences cather (131F7P) Signature Audit [place] Stage Time Signature Unsigned Intra-Procedure 08/28/2017 Pineda Farrar 11:32:04 AM RT(R) Signatures Monitor : Pineda Farrar RT Signature : Date : Time : [address] [address]
[~2017-08-23 15:43] MED LIST changes: +CARDIZEM CD240 MG PO; +ELIQUIS2.5 MG PO; +LANOXIN125 MCG PO; +MEDROL DOSE PACK4 MG PO; +MUCINEX600 MG PO; +SINGULAIR10 MG PO
[2017-08-23] MEDS ORDERED: CALAN SR240 MG PO (15:47)
[2017-08-23] MEDS ORDERED: ORENCIA250 MG/10 IV (15:48)
[2017-08-23 16:46] LABS: BASOPHILS 0 % (0-2); EOSINOPHILS 0.1 % (0-7); HEMATOCRIT 33.3 % (36.0-48.0); HEMOGLOBIN 11.1 g/dL (12-16); IMMATURE GRANULOCYTES 0.3 % (0-5); LYMPHOCYTES 11.8 % (15-50); MCH 29.8 pg (26.0-34.0); MCHC 33.3 g/dL (31.0-37.0); MCV 89.5 fL (80.0-100.0); MEAN PLATELET VOLUME 10.1 fL (7.4-10.4); NEUTROPHILS 77.8 % (40-80); RBC 3.72 10x6/uL (4.00-5.40); RDW 14.8 % (11.5-14.5)
[2017-08-23 16:50] LABS: PLATELET COUNT 176 10x3/uL (130-400)
[2017-08-23 16:55] LABS: APTT 32.7 SECONDS (22.8-39.4); INR 1.25 (0.85-1.17); PROTIME 15.2 SECONDS (11.6-15.0)
[2017-08-23 16:56] LABS: D-DIMER-QUANTITATIVE 1.43 ug/mLFEU (0.20-0.54)
[2017-08-23 17:10] LABS: ALBUMIN 2.7 g/dL (3.4-5.0); ALKALINE PHOSPHATASE 82 U/L (46-116); ALT (SGPT) 51 U/L (10-68); BILIRUBIN - TOTAL 0.82 mg/dL (0.2-1.3); CALC OSMOLALITY 276 mosm/kg (275-300); CALCIUM 9.3 mg/dL (8.5-10.1); CARBON DIOXIDE 38.3 mmol/L (21.0-32.0); CHLORIDE - SERUM 91 mmol/L (98-107); CREATININE - SERUM 1.1 mg/dL (0.6-1.3); GLUCOSE 209 mg/dL (74-106); POTASSIUM - SERUM 3.5 mmol/L (3.5-5.1); SODIUM 132 mmol/L (136-145); UREA NITROGEN 28 mg/dL (7-18); eGFR NON AFRICAN AMERICAN 51 mL/min (90-120)
[2017-08-23 17:19] LABS: CKMB 0.8 U/L (0.0-3.6); CREATINE KINASE 43 UL (21-215); PRO BNP 4320 pg/mL (0-450); TROPONIN-I 0.034 ng/mL (0.000-0.060)
[2017-08-23 19:15] VITALS: BP 124/77
[2017-08-23 20:00] VITALS: BP 130/61
[2017-08-23 20:30] VITALS: BP 129/59
[2017-08-23 20:30] LABS: APPEARANCE HAZY (CLEAR); BILIRUBIN NEGATIVE (NEGATIVE); COLOR DK YELLOW (YELLOW); GLUCOSE NEGATIVE (NEGATIVE); KETONE SMALL mg/dL (NEGATIVE); NITRITE NEGATIVE (NEGATIVE); PROTEIN NEGATIVE (NEGATIVE); SPECIFIC GRAVITY 1.005 (1.005-1.020); UROBILINOGEN NORMAL (NORMAL)
[2017-08-23 20:34] LABS: BACTERIA MODERATE /hpf (NONE SEEN); EPITHELIAL CELLS 0-5 /hpf (0-5)
[2017-08-23 21:00] VITALS: BP 123/54
[2017-08-23 21:56] VITALS: BP 130/51; BP 132/51
[2017-08-24 02:10] VITALS: BMI 41.6
[2017-08-24 04:00] VITALS: BP 133/55
[2017-08-24 05:31] LABS: BASOPHILS 0.1 % (0-2); EOSINOPHILS 0.3 % (0-7); HEMATOCRIT 32.8 % (36.0-48.0); HEMOGLOBIN 10.8 g/dL (12-16); IMMATURE GRANULOCYTES 0.4 % (0-5); LYMPHOCYTES 12.6 % (15-50); MCH 29.2 pg (26.0-34.0); MCHC 32.9 g/dL (31.0-37.0); MCV 88.6 fL (80.0-100.0); MEAN PLATELET VOLUME 9.9 fL (7.4-10.4); MONOCYTES 9.8 % (2-11); NEUTROPHILS 76.8 % (40-80); PLATELET COUNT 184 10x3/uL (130-400); RDW 14.7 % (11.5-14.5); WBC 14.4 10x3/uL (4.8-10.8)
[2017-08-24 05:47] LABS: ANION GAP 10.7 mmol/L (8-16); CALCIUM 8.9 mg/dL (8.5-10.1); CARBON DIOXIDE 35.3 mmol/L (21.0-32.0)
[2017-08-24 05:48] LABS: CREATININE - SERUM 0.8 mg/dL (0.6-1.3)
[2017-08-24 08:42] VITALS: BP 165/76
[2017-08-24 12:15] VITALS: BP 138/54
[2017-08-24 15:41] VITALS: BP 158/68
[2017-08-24 21:40] VITALS: BP 130/48
[2017-08-25] VITALS: BP 121/46
[2017-08-25 04:00] VITALS: BP 130/51
[2017-08-25 04:53] LABS: BASOPHILS 0.1 % (0-2); EOSINOPHILS 1.1 % (0-7); HEMATOCRIT 29.6 % (36.0-48.0); HEMOGLOBIN 9.9 g/dL (12-16); IMMATURE GRANULOCYTES 0.3 % (0-5); LYMPHOCYTES 20.3 % (15-50); MCH 29.8 pg (26.0-34.0); MCHC 33.4 g/dL (31.0-37.0); MCV 89.2 fL (80.0-100.0); MEAN PLATELET VOLUME 9.4 fL (7.4-10.4); MONOCYTES 10.1 % (2-11); NEUTROPHILS 68.1 % (40-80); PLATELET COUNT 189 10x3/uL (130-400); RBC 3.32 10x6/uL (4.00-5.40); RDW 14.8 % (11.5-14.5)
[2017-08-25 04:56] LABS: WBC 9.2 10x3/uL (4.8-10.8)
[2017-08-25 05:04] LABS: ANION GAP 11.3 mmol/L (8-16); CALCIUM 8.8 mg/dL (8.5-10.1); POTASSIUM - SERUM 3.3 mmol/L (3.5-5.1)
[2017-08-25 05:05] LABS: CREATININE - SERUM 1.2 mg/dL (0.6-1.3)
[2017-08-25 11:22] VITALS: BP 138/72
[2017-08-25 12:51] VITALS: BMI 41.5
[2017-08-25 15:35] VITALS: BP 128/66
[2017-08-25 20:00] VITALS: BP 140/76
[2017-08-26] VITALS: BP 126/46
[2017-08-26 04:00] VITALS: BP 138/51
[2017-08-26 05:41] LABS: ANION GAP 10.6 mmol/L (8-16); CALCIUM 8.4 mg/dL (8.5-10.1); CARBON DIOXIDE 34.2 mmol/L (21.0-32.0); CREATININE - SERUM 1.3 mg/dL (0.6-1.3)
[2017-08-26 05:52] LABS: POTASSIUM - SERUM 3.8 mmol/L (3.5-5.1)
[2017-08-26 06:13] LABS: BASOPHILS 0.1 % (0-2); EOSINOPHILS 1.6 % (0-7); HEMATOCRIT 28.9 % (36.0-48.0); HEMOGLOBIN 9.5 g/dL (12-16); IMMATURE GRANULOCYTES 0.4 % (0-5); LYMPHOCYTES 21.5 % (15-50); MCH 29.3 pg (26.0-34.0); MCHC 32.9 g/dL (31.0-37.0); MCV 89.2 fL (80.0-100.0); MEAN PLATELET VOLUME 9.3 fL (7.4-10.4); MONOCYTES 8.6 % (2-11); NEUTROPHILS 67.8 % (40-80); PLATELET COUNT 207 10x3/uL (130-400); RBC 3.24 10x6/uL (4.00-5.40); RDW 15.1 % (11.5-14.5)
[2017-08-26 06:15] LABS: WBC 6.7 10x3/uL (4.8-10.8)
[2017-08-26 08:49] VITALS: BP 137/51
[2017-08-26 12:05] VITALS: BP 135/44
[2017-08-26 15:57] VITALS: BP 124/58
[2017-08-26 20:09] VITALS: BP 147/48
[2017-08-27 00:09] VITALS: BP 127/40
[2017-08-27 05:08] VITALS: BP 126/40
[2017-08-27 05:56] LABS: BASOPHILS 0.1 % (0-2); EOSINOPHILS 3.3 % (0-7); HEMATOCRIT 29.1 % (36.0-48.0); HEMOGLOBIN 9.5 g/dL (12-16); LYMPHOCYTES 24.5 % (15-50); MCH 29.2 pg (26.0-34.0); MCHC 32.6 g/dL (31.0-37.0); MCV 89.5 fL (80.0-100.0); MEAN PLATELET VOLUME 9.1 fL (7.4-10.4); MONOCYTES 7.4 % (2-11); NEUTROPHILS 63.7 % (40-80); PLATELET COUNT 240 10x3/uL (130-400); RBC 3.25 10x6/uL (4.00-5.40); RDW 15.2 % (11.5-14.5); WBC 6.7 10x3/uL (4.8-10.8)
[2017-08-27 06:02] LABS: ANION GAP 12.3 mmol/L (8-16); CALCIUM 8.6 mg/dL (8.5-10.1); CARBON DIOXIDE 32.3 mmol/L (21.0-32.0); POTASSIUM - SERUM 3.6 mmol/L (3.5-5.1)
[2017-08-27 07:53] VITALS: BP 140/44
[2017-08-27 11:27] VITALS: Ht 154.9 cm; Wt 99.3 kg
[2017-08-27 16:06] VITALS: BP 120/39
[2017-08-27 21:55] VITALS: BP 155/41
[2017-08-28 00:58] VITALS: BP 139/83
[2017-08-28 04:00] VITALS: BP 149/43
[2017-08-28 05:33] LABS: BASOPHILS 0.2 % (0-2); EOSINOPHILS 2.9 % (0-7); HEMATOCRIT 28.4 % (36.0-48.0); HEMOGLOBIN 9.1 g/dL (12-16); IMMATURE GRANULOCYTES 1.7 % (0-5); LYMPHOCYTES 18.5 % (15-50); MCH 29.3 pg (26.0-34.0); MCV 91.3 fL (80.0-100.0); MEAN PLATELET VOLUME 8.8 fL (7.4-10.4); MONOCYTES 9.6 % (2-11); NEUTROPHILS 67.1 % (40-80); PLATELET COUNT 239 10x3/uL (130-400); RBC 3.11 10x6/uL (4.00-5.40); RDW 15.3 % (11.5-14.5); WBC 6.6 10x3/uL (4.8-10.8)
[2017-08-28 05:54] LABS: ANION GAP 9.8 mmol/L (8-16); CALCIUM 8.8 mg/dL (8.5-10.1); CARBON DIOXIDE 33.7 mmol/L (21.0-32.0); CREATININE - SERUM 1.1 mg/dL (0.6-1.3)
[2017-08-28 05:59] LABS: POTASSIUM - SERUM 4.5 mmol/L (3.5-5.1)
[2017-08-28 08:15] VITALS: BP 136/46
[2017-08-28 17:23] VITALS: BP 153/46
[2017-08-28 20:00] VITALS: BP 134/44
[2017-08-29 04:00] VITALS: BP 114/40
[2017-08-29 08:02] VITALS: BP 133/65
[2017-08-29 10:58] VITALS: BP 131/61
[2017-08-29 16:51] VITALS: BP 128/65
[2017-08-29 21:04] VITALS: BP 139/41
[2017-08-30 00:34] VITALS: BP 109/38
[2017-08-30 04:43] LABS: BASOPHILS 0.3 % (0-2); EOSINOPHILS 2.2 % (0-7); HEMATOCRIT 25.2 % (36.0-48.0); HEMOGLOBIN 8.1 g/dL (12-16); IMMATURE GRANULOCYTES 3.6 % (0-5); LYMPHOCYTES 21.7 % (15-50); MCH 28.9 pg (26.0-34.0); MCHC 32.1 g/dL (31.0-37.0); MEAN PLATELET VOLUME 8.6 fL (7.4-10.4); MONOCYTES 10.9 % (2-11); NEUTROPHILS 61.3 % (40-80); PLATELET COUNT 255 10x3/uL (130-400); RDW 15.6 % (11.5-14.5)
[2017-08-30 04:46] LABS: ANION GAP 10.2 mmol/L (8-16); CALCIUM 8.5 mg/dL (8.5-10.1); CARBON DIOXIDE 31.7 mmol/L (21.0-32.0); POTASSIUM - SERUM 3.9 mmol/L (3.5-5.1)
[2017-08-30 05:37] VITALS: BP 122/42
[2017-08-30 08:06] VITALS: BP 140/42
[2017-08-30 16:45] VITALS: BP 136/49
[2017-08-30 20:00] VITALS: BP 133/38
[2017-08-31] VITALS: BP 139/39
[2017-08-31 05:04] LABS: BASOPHILS 0.5 % (0-2); EOSINOPHILS 3.1 % (0-7); HEMATOCRIT 27.1 % (36.0-48.0); HEMOGLOBIN 8.5 g/dL (12-16); IMMATURE GRANULOCYTES 6.6 % (0-5); LYMPHOCYTES 28.6 % (15-50); MCH 28.5 pg (26.0-34.0); MCHC 31.4 g/dL (31.0-37.0); MCV 90.9 fL (80.0-100.0); MEAN PLATELET VOLUME 8.5 fL (7.4-10.4); MONOCYTES 12.2 % (2-11); PLATELET COUNT 300 10x3/uL (130-400); RBC 2.98 10x6/uL (4.00-5.40); RDW 15.4 % (11.5-14.5); WBC 5.5 10x3/uL (4.8-10.8)
[2017-08-31 05:22] LABS: ANION GAP 8.2 mmol/L (8-16); CALCIUM 8.8 mg/dL (8.5-10.1); CARBON DIOXIDE 33.4 mmol/L (21.0-32.0); POTASSIUM - SERUM 3.6 mmol/L (3.5-5.1)
[2017-08-31 08:43] VITALS: BP 138/38
[2017-08-31 11:59] VITALS: BP 135/57
[2017-08-31 16:07] VITALS: BP 148/53
[2017-08-31 20:00] VITALS: BP 138/67
[2017-09-01] VITALS: BP 149/60
[2017-09-01 04:44] LABS: BASOPHILS 0.5 % (0-2); EOSINOPHILS 4.6 % (0-7); HEMATOCRIT 26.1 % (36.0-48.0); HEMOGLOBIN 8.4 g/dL (12-16); IMMATURE GRANULOCYTES 7.6 % (0-5); LYMPHOCYTES 31.1 % (15-50); MCH 29.3 pg (26.0-34.0); MCHC 32.2 g/dL (31.0-37.0); MCV 90.9 fL (80.0-100.0); MEAN PLATELET VOLUME 8.1 fL (7.4-10.4); MONOCYTES 12.6 % (2-11); NEUTROPHILS 43.6 % (40-80); PLATELET COUNT 276 10x3/uL (130-400); RBC 2.87 10x6/uL (4.00-5.40); RDW 15.5 % (11.5-14.5); WBC 6.3 10x3/uL (4.8-10.8)
[2017-09-01 05:11] LABS: ANION GAP 9.5 mmol/L (8-16); CARBON DIOXIDE 31.7 mmol/L (21.0-32.0); CREATININE - SERUM 0.9 mg/dL (0.6-1.3); POTASSIUM - SERUM 4.2 mmol/L (3.5-5.1)
[2017-09-01 07:40] VITALS: BP 154/49
[2017-09-01 11:41] VITALS: BP 141/60
[2017-09-01 15:17] VITALS: BP 141/45
[2017-09-01 20:00] VITALS: BP 124/41
[2017-09-02 01:43] VITALS: BP 149/52
[2017-09-02 04:49] VITALS: BP 140/42
[2017-09-02 05:28] LABS: BASOPHILS 0.8 % (0-2); EOSINOPHILS 3.7 % (0-7); HEMOGLOBIN 8.8 g/dL (12-16); IMMATURE GRANULOCYTES 7.2 % (0-5); LYMPHOCYTES 27.4 % (15-50); MCH 28.5 pg (26.0-34.0); MCHC 31.4 g/dL (31.0-37.0); MCV 90.6 fL (80.0-100.0); MEAN PLATELET VOLUME 8.5 fL (7.4-10.4); MONOCYTES 12.4 % (2-11); NEUTROPHILS 48.5 % (40-80); PLATELET COUNT 315 10x3/uL (130-400); RBC 3.09 10x6/uL (4.00-5.40); RDW 15.5 % (11.5-14.5); WBC 7.3 10x3/uL (4.8-10.8)
[2017-09-02 05:34] LABS: ANION GAP 9.3 mmol/L (8-16); CARBON DIOXIDE 33.4 mmol/L (21.0-32.0); MAGNESIUM - SERUM 1.8 mg/dL (1.8-2.4); PHOSPHOROUS 3.7 mg/dL (2.5-4.9); POTASSIUM - SERUM 3.7 mmol/L (3.5-5.1)
[2017-09-02 07:41] VITALS: BP 145/56
[2017-09-02] MEDS ORDERED: FERROUS SULFAT325 MG PO (07:48)
[2017-09-02] MEDS ORDERED: FLUTICASONE PRO16 GM NASAL (07:49)
[2017-09-02] MEDS ORDERED: MUCINEX600 MG PO (07:49)
[2017-09-02] MEDS ORDERED: BROVANA15 MCG/2 M INH (07:50)
[2017-09-02] MEDS ORDERED: XOPENEX 0.0.63 MG/3 UPD (07:50)
[2017-09-02] MEDS ORDERED: ATROVENT 0.02%2.5 ML INH (07:50)
[2017-09-02 11:52] VITALS: BP 121/43
== END 2017-09-02 13:18 | DRG 286 ==
LOC: D.ER 15:43 → D.EDHOLD 20:32 → D.M2 20:32
PROVIDERS: Family Medicine; Internal Medicine Cardiovascular Disease; Internal Medicine Pulmonary Disease
PROC: B2141ZZ Fluoroscopy of Right Heart using Low Osmolar Contrast (ICD-10-PCS; 2017-08-28)
PROC: 4A023N6 Measurement of Cardiac Sampling and Pressure, Right Heart, Percutaneous Approach (ICD-10-PCS; principal; 2017-08-28 10:34)
DX: I31.3 Pericardial effusion (noninflammatory) (principal); J96.21 Acute and chronic respiratory failure with hypoxia; I50.23 Acute on chronic systolic (congestive) heart failure; J44.1 Chronic obstructive pulmonary disease with (acute) exacerbation; N39.0 Urinary tract infection, site not specified; I48.92 Unspecified atrial flutter; J84.9 Interstitial pulmonary disease, unspecified; J98.11 Atelectasis; I11.0 Hypertensive heart disease with heart failure; F32.9 Major depressive disorder, single episode, unspecified; H35.30 Unspecified macular degeneration; E11.9 Type 2 diabetes mellitus without complications; R19.7 Diarrhea, unspecified; I48.91 Unspecified atrial fibrillation; I08.1 Rheumatic disorders of both mitral and tricuspid valves; D50.9 Iron deficiency anemia, unspecified; I44.0 Atrioventricular block, first degree; Z87.891 Personal history of nicotine dependence

== ENCOUNTER 2017-09-02 12:00 | Inpatient (IN) | payer MEDICARE, BC ==
[~2017-09-02] VITALS: Ht 154.9 cm; Wt 99.3 kg
--- NOTE | ~2017-09-02 | RHP ---
PATIENT: CHIKA CHAPPELL MEDICAL RECORD: [id number] ACCOUNT: [id number] LOCATION:[facility]1117 : 39 ADMISSION DATE: 09/02/17 REHABILITATION HISTORY AND PHYSICAL EXAMINATION POST ADMISSION PHYSICIAN EXAMINATION POST-ADMISSION PHYSICAL EXAMINATION AND HISTORY AND PHYSICAL DATE OF ADMISSION TO THE REHAB: 09/02/2017 ADMITTING DIAGNOSIS: Congestive heart failure induced myopathy. HISTORY OF PRESENT ILLNESS: The patient is a 77-year-old female patient, admitted to the inpatient rehab with CHF-induced myopathy. The patient was recently admitted this past month with respiratory failure. She was in atrial flutter as well. An echocardiogram revealed an ejection fraction of 40%. She did not have a pericardial effusion at that time. Started on Cardizem for rate control. This proceed to cardioversion after 2-3 weeks of anticoagulation. She returned to the Emergency Room on 08/23. She had worsening dyspnea in the previous 2-3 days. She had also had some orthopnea. She was in atrial flutter, but her rate was controlled. She had acute systolic heart failure. She had a decreased ejection fraction with her atrial flutter and loss of her atrial kick. Her white count was elevated. She was on steroids at this time. She does have rhonchi on exam. She states that she was febrile at times. CT suggested a pericardial effusion, although there was none present on echo 3 weeks prior. Pulmonary and cardiology were consulted for chronic hypoxic respiratory failure, mild pulmonary hypertension, secondary congestive heart failure, severe COPD, and AFib. On 08/25, she had successful cardioversion with hindu of sinus rhythm. On 08/28, she had a right heart catheterization to rule out constrictive pericarditis. 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 She is on 4 L of continuous O2. She has had prolonged immobility, progressive generalized weakness especially in lower extremities. It is affecting her exercise tolerance. She is fatigued. She has got limited extension and flexion in her lower extremities. She has got noted proximal muscle weakness and fmgoafdi-hm-ibe assist for ADLs and honaayif-mz-kpk assist sit to stand and bed to chair. Previously, she lived with her son. She was on O2 at 4 liters and BiPAP at night. She was moderately independent for ADLs and mobility. She is highly motivated to regain her strength and return back home if possible. Comorbidities include acute on chronic hypoxic respiratory failure, COPD, atrial fib, congestive heart failure, pericardial effusion, interstitial pneumonia, leukocytosis, hypoxia, shortness of breath, atrial flutter, atrial fib, anemia, generalized weakness, UTI, fever, fatigue, anxiety, and depression. PAST MEDICAL HISTORY: Significant for O2 dependent COPD, congestive heart failure, macular degeneration, hypertension, depression, diabetes, recent diagnosis of AFib, atrial flutter. PAST SURGICAL HISTORY: Includes bilateral tubal ligation in the past. ALLERGIES: PENICILLIN. CURRENT MEDICATIONS: She is on prednisone 2.5 mg daily, losartan 25 mg daily, Lozol 2.5 mg daily, Cardizem 240 mg daily, digoxin 0.125 mg daily, potassium 20 mEq t.i.d., Singulair 10 mg at bedtime, metformin 500 mg b.i.d. with meals, HISTORY AND PHYSICAL [id number] CHIKA CHAPPELL Xopenex updrafts as needed, Atrovent 0.5 mg q.i.d. with her nebs. She is on Mucinex 600 mg b.i.d., Lasix 40 mg b.i.d., ferrous sulfate 325 b.i.d., Brovana 15 mcg b.i.d., Eliquis 2.5 mg b.i.d., and polyethylene glycol 17 g in 8 ounces of water daily. HABITS: No current alcohol or tobacco use. FAMILY HISTORY: Noncontributory. SOCIAL HISTORY: The patient hopes to return back home and get back to her prior level of functioning. REVIEW OF SYSTEMS: GENERAL: Does complain of weakness. HEENT: Denies cold, cough, or congestion. CARDIOVASCULAR: Denies chest pain. PHYSICAL EXAMINATION: VITAL SIGNS: Stable, afebrile. GENERAL: A somewhat obese female, in no distress upon exam. HEENT: Normocephalic and atraumatic. Mucosa moist. NECK: Supple, with no lymphadenopathy. LUNGS: Coarse breath sounds bilaterally. CARDIOVASCULAR: Irregular rate and rhythm. ABDOMEN: Benign. EXTREMITIES: No clubbing, cyanosis, or edema. NEUROLOGIC: She does have noted weakness. LABORATORY DATA: White count of 6.6, H&H of 8.9 and 27.8, and platelet count of 281. Sodium is 139, potassium 3.1, BUN and creatinine of 13 and 0.9, and blood sugar is noted to be 130. ASSESSMENT: This is a 77-year-old female patient admitted to rehab with a working diagnosis of congestive heart failure induced myopathy and debility. The patient has potential to improvement. We will institute the following multidisciplinary therapies including, but not limited to physical, occupational, respiratory, speech, nutritional services, prosthetics and orthotics. Given her complex medical condition and risks for more complications, rehabilitation services cannot be provided at a low level of care such as a long term facility. PLAN: 1. Admit to [facility] for intensive inpatient therapy to include the following disciplines: A. Physical therapy to improve gait, all transfer skills and bed mobility to a modified independent level. B. Occupational therapy to improve activities of daily living to a modified independent level. C. Case management to assist with discharge planning and placement options. D. Nutrition to assist with nutritional needs. E. Rehabilitation nursing to assist in monitoring the patient's underlying medical conditions and to assist with any type of bowel or bladder management. 2. The patient's current medications and medical care will be continued. 3. The patient will be placed on standard fall precautions. 4. The patient's estimated length of stay is approximately 7-10 days. HISTORY AND PHYSICAL [id number] CHIKA CHAPPELL 5. We will discuss this patient during care team staff meeting this week and we will watch her H&H closely. TRANSINT:[id number] Voice Confirmation ID: [id number] DOCUMENT ID: [id number] INDRA notes whether there has been none or any medical/functional change since admission: - No change since the PAS INDRA attests patient continues to be appropriate for IRF: - Remains appropriate for the IRF RADHA CARUSO MD at 1438 CC: [id number] DICTATION DATE: 09/03/17 0839 CENTRAL OFFICE OPERATOR SUPERVISOR: 09/03/17 1046 ADM IN [facility] [address] [place] [address]
[~2017-09-02 12:00] MED LIST changes: +ATROVENT 0.02%2.5 ML INH; +BROVANA15 MCG/2 M INH; +FERROUS SULFAT325 MG PO; +FLUTICASONE PRO16 GM NASAL; +ORENCIA250 MG/10 IV; +XOPENEX 0.0.63 MG/3 UPD
[2017-09-02 14:58] VITALS: BP 135/40; BMI 41.4
[2017-09-02 19:00] VITALS: BP 148/45
[2017-09-02 22:47] VITALS: BP 150/46
[2017-09-03 07:08] LABS: BASOPHILS 0.8 % (0-2); EOSINOPHILS 3.2 % (0-7); HEMATOCRIT 27.8 % (36.0-48.0); HEMOGLOBIN 8.9 g/dL (12-16); IMMATURE GRANULOCYTES 5.1 % (0-5); LYMPHOCYTES 31.8 % (15-50); MCH 28.6 pg (26.0-34.0); MCV 89.4 fL (80.0-100.0); MEAN PLATELET VOLUME 8.5 fL (7.4-10.4); MONOCYTES 11.6 % (2-11); NEUTROPHILS 47.5 % (40-80); PLATELET COUNT 281 10x3/uL (130-400); RBC 3.11 10x6/uL (4.00-5.40); RDW 15.5 % (11.5-14.5); WBC 6.6 10x3/uL (4.8-10.8)
[2017-09-03 07:36] LABS: ANION GAP 7.1 mmol/L (8-16); CREATININE - SERUM 0.9 mg/dL (0.6-1.3)
[2017-09-03 07:38] LABS: POTASSIUM - SERUM 3.1 mmol/L (3.5-5.1)
[2017-09-03 08:00] VITALS: BP 131/42
[2017-09-03 10:40] VITALS: Ht 154.9 cm; Wt 99.3 kg
[2017-09-03 19:00] VITALS: BP 139/43
[2017-09-04 08:00] VITALS: BP 125/46
[2017-09-04 19:00] VITALS: BP 168/47
[2017-09-05 06:22] LABS: BASOPHILS 0.6 % (0-2); EOSINOPHILS 2.1 % (0-7); HEMATOCRIT 28.8 % (36.0-48.0); HEMOGLOBIN 9.3 g/dL (12-16); IMMATURE GRANULOCYTES 4.8 % (0-5); LYMPHOCYTES 28.8 % (15-50); MCH 28.8 pg (26.0-34.0); MCHC 32.3 g/dL (31.0-37.0); MCV 89.2 fL (80.0-100.0); MEAN PLATELET VOLUME 8.6 fL (7.4-10.4); NEUTROPHILS 51.7 % (40-80); PLATELET COUNT 290 10x3/uL (130-400); RBC 3.23 10x6/uL (4.00-5.40); RDW 15.5 % (11.5-14.5); WBC 8.5 10x3/uL (4.8-10.8)
[2017-09-05 06:24] LABS: ANION GAP 12.7 mmol/L (8-16); CALCIUM 9.4 mg/dL (8.5-10.1); CARBON DIOXIDE 29.9 mmol/L (21.0-32.0)
[2017-09-05 06:27] LABS: POTASSIUM - SERUM 3.6 mmol/L (3.5-5.1)
[2017-09-05 08:00] VITALS: BP 128/47
[2017-09-05 19:00] VITALS: BP 148/52
[2017-09-06 10:26] VITALS: BP 129/39
[2017-09-07 10:19] VITALS: BP 125/36
[2017-09-08 05:59] LABS: BASOPHILS 0.5 % (0-2); EOSINOPHILS 1.3 % (0-7); HEMATOCRIT 27.6 % (36.0-48.0); HEMOGLOBIN 8.8 g/dL (12-16); IMMATURE GRANULOCYTES 1.7 % (0-5); LYMPHOCYTES 33.6 % (15-50); MCH 28.9 pg (26.0-34.0); MCHC 31.9 g/dL (31.0-37.0); MCV 90.5 fL (80.0-100.0); MEAN PLATELET VOLUME 8.8 fL (7.4-10.4); NEUTROPHILS 48.9 % (40-80); PLATELET COUNT 245 10x3/uL (130-400); RBC 3.05 10x6/uL (4.00-5.40); RDW 15.7 % (11.5-14.5)
[2017-09-08 06:29] LABS: CALC OSMOLALITY 280 mosm/kg (275-300); CALCIUM 8.8 mg/dL (8.5-10.1); CARBON DIOXIDE 36.8 mmol/L (21.0-32.0); CHLORIDE - SERUM 99 mmol/L (98-107); CREATININE - SERUM 0.7 mg/dL (0.6-1.3); GLUCOSE 99 mg/dL (74-106); PRO BNP 598 pg/mL (0-450); SODIUM 141 mmol/L (136-145); UREA NITROGEN 13 mg/dL (7-18); eGFR NON AFRICAN AMERICAN 86 mL/min (90-120)
[2017-09-08 06:31] LABS: POTASSIUM - SERUM 2.7 mmol/L (3.5-5.1)
[2017-09-08 07:57] VITALS: BP 122/58
[2017-09-08 19:00] VITALS: BP 126/48
[2017-09-09 08:00] VITALS: BP 123/36
== END 2017-09-09 12:30 | disposition home health service (06) | DRG 91 ==
LOC: D.REHAB 12:00
PROVIDERS: Emergency Medicine
DX: G72.89 Other specified myopathies (principal); J96.21 Acute and chronic respiratory failure with hypoxia; J18.8 Other pneumonia, unspecified organism; I50.21 Acute systolic (congestive) heart failure; I31.3 Pericardial effusion (noninflammatory); N39.0 Urinary tract infection, site not specified; J44.1 Chronic obstructive pulmonary disease with (acute) exacerbation; I11.0 Hypertensive heart disease with heart failure; Z66 Do not resuscitate; I48.91 Unspecified atrial fibrillation; D72.829 Elevated white blood cell count, unspecified; R09.02 Hypoxemia; R06.02 Shortness of breath; D64.9 Anemia, unspecified; R53.1 Weakness; R50.9 Fever, unspecified; R53.83 Other fatigue; F41.8 Other specified anxiety disorders

== ENCOUNTER 2017-09-13 17:07 | Inpatient (IN) | payer MEDICARE, BC ==
[~2017-09-13] VITALS: Ht 154.9 cm; Wt 97.1 kg
--- NOTE | ~2017-09-13 | HP ---
PATIENT: CHIKA CHAPPELL MEDICAL RECORD: [id number] ACCOUNT: [id number] LOCATION:[id number] : 39 ADMISSION DATE: 09/13/17 HISTORY AND PHYSICAL EXAMINATION DATE OF ADMISSION: 09/13/2017 CHIEF COMPLAINT: Shortness of breath. HISTORY OF PRESENT ILLNESS: This is a 77-year-old female who has been in and out of the hospital a couple of times in the last month or so. She had been recently diagnosed with AFib/flutter and was discharged home on Lanoxin, Cardizem and Eliquis. She was readmitted on 08/23/17 with increased shortness of breath and was found to be a pericardial effusion at that time. Upon admission, she was not anemic, but became more anemic when she was discharged to rehab. She was discharged to rehab on 09/02/17. Hemoglobin then was 8.8. It was felt that her pericardial effusion was likely due to chronic pulmonary disease and did not require pericardial window. Lasix was continued. She was also treated for UTI then. She was discharged from rehab on 09/09/17 and she has had increased shortness of breath since then. She presented to the ER, hemoglobin was 9.6, normal white blood cell count, normal basic metabolic panel, normal troponin. Her proBNP was 2554. She is on 4 liters of oxygen at home. Her pCO2 was 45 and pO2 was 89. Chest x-ray shows central vascular congestion with bilateral pleural effusion and bibasilar airspace disease. It was felt this could be due to fluid overload or CHF. She is admitted. 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 Iverson, history of CHF, macular degeneration, hypertension, depression, diabetes, recent diagnosis of AFib/flutter. Past surgical history of bilateral tubal ligation. ALLERGIES: PENICILLIN. HOME MEDICATIONS: Digoxin 0.125 mg once a day, Cardizem-CD 240 once a day, Singulair 10 mg once a day, Eliquis 2.5 mg twice a day, iron sulfate 325 mg twice a day, Mucinex 600 mg twice a day, Brovana updraft twice a day, Atrovent updraft 4 times a day, Xopenex or albuterol 4 times a day, losartan 25 mg once a day, Lasix 40 mg twice a day, Lozol 2.5 mg once a day, K-Dur 20 mEq 3 times a day, metformin 500 mg twice a day and Advair 500/50 one inhalation twice a day. FAMILY HISTORY: Parents with heart disease and lung disease. SOCIAL HISTORY: Retired, , lives with her son. HABITS: Former smoker, no alcohol or drugs. REVIEW OF SYSTEMS: GENERAL: No major weight changes. HEENT: No sinus or allergy problems. RESPIRATORY: Has O2 dependent COPD. CARDIAC: Recent history of AFib/flutter and has a history of CHF. GASTROINTESTINAL: No significant reflux, diarrhea or constipation. GENITOURINARY: No significant problems there. MUSCULOSKELETAL: Has arthritic aches and pains. She used to be on methotrexate for diagnosis of rheumatoid arthritis. HISTORY AND PHYSICAL [id number] CHIKA CHAPPELL NEUROLOGIC: No migraines or seizures. PSYCHIATRIC: No depression or melancholia. PHYSICAL EXAMINATION: VITAL SIGNS: Today, temperature 95.7, pulse 74, respirations 17, blood pressure 120/48, O2 sat 93% on 4 liters. She does not appear to be in acute distress, but her problems are when she gets up and walks. HEENT: Grossly within normal limits. NECK: Supple. No JVD or bruit. HEART: Regular rate and rhythm. LUNGS: Decreased breath sounds in the bases bilaterally. ABDOMEN: Soft, nontender. EXTREMITIES: No edema. NEUROLOGIC: Intact. LABORATORY DATA: CBC: White count 7200, hemoglobin 9.6, hematocrit 29.7, platelets 227,000. Basic metabolic panel is all normal as are liver functions. Troponin less than 0.017. ProBNP elevated at 2554. Arterial blood gas on 4 liters; pH 7.5, pCO2 of 45, pO2 of 84. Urinalysis is okay. Chest x-ray, central vascular congestion with bilateral pleural effusion and bibasilar airspace disease. ASSESSMENT: 1. Dyspnea, CHF versus fluid overload. 2. Anemia. 3. Pleural effusions. PLAN: Diurese, put her on telemetry. Continue oxygen. Dr. Iverson has been consulted through the ER. We will defer antibiotics to him at this time. Other tests or procedures as warranted. TRANSINT:[id number] Voice Confirmation ID: [id number] DOCUMENT ID: [id number] CHELSIE PEARL MD at 2107 CC: [id number] DICTATION DATE: 09/14/17 1504 NEWS ASSISTANT: 09/14/17 1603 ADM IN [place] [id number] [place] [id number]
--- NOTE | ~2017-09-13 | CN ---
PATIENT NAME:CHIKA BONILLA MEDICAL RECORD: [id number] : 38 LOCATION:[id number] ADMIT DATE: 09/13/17 ACCOUNT: [id number] CONSULTING PHYSICIAN: FLOYD CLAYTON MD REFERRING PHYSICIAN: KELY SÁNCHEZ MD DATE OF CONSULTATION: 09/14/2017 CONSULT REQUESTING PHYSICIAN: Kely Sánchez MD REASON FOR CONSULTATION: Acute exacerbation of chronic obstructive pulmonary disease, pneumonia. HISTORY OF PRESENT ILLNESS: Ms. Bonilla is a 77-year-old female. This is her third admission over the last few weeks. According to the patient, she was just discharged home from the rehab, she started coughing, wheezing, shortness of breath with mild exertion. Denies any chest pain. She was feeling very weak. REVIEW OF SYSTEMS: As in history of present illness. PAST MEDICAL HISTORY: 1. Chronic obstructive pulmonary disease of severe degree. 2. Chronic hypoxic respiratory failure. 3. Mild pulmonary hypertension secondary to congestive heart failure and severe chronic obstructive pulmonary disease. 4. Congestive heart failure with chronic diastolic dysfunction. 5. Diabetes mellitus. 6. Hypertension. 7. Recent pericardial effusion. PAST SURGICAL HISTORY: She has a tubal ligation in the past. ALLERGIES: SHE IS ALLERGIC TO PENICILLIN. PRESENT MEDICATIONS: [employer] is reviewed. PERSONAL AND SOCIAL HISTORY: The patient is an ex-smoker. She is a nondrinker. FAMILY HISTORY: Noncontributory. PHYSICAL EXAMINATION: GENERAL: The patient is now lying comfortably. She is not in acute distress. VITAL SIGNS: The blood pressure is 149/69, pulse is 81, respirations 17, temperature 96.3, SpO2 of 98% on 4 liters nasal cannula. HEENT: Conjunctivae are pink. Sclerae are not icteric. NECK: Supple, no JVD. CHEST: There are bilateral crackles. No wheezing. HEART: Rhythm regular, normal sound, no murmur. ABDOMEN: Soft, bowel sounds present. No hepatosplenomegaly. RECTAL: Deferred. EXTREMITIES: No cyanosis, no clubbing. There is 1+ pedal edema. SKIN: Warm, normal turgor. CENTRAL NERVOUS SYSTEM: The patient is awake and alert. There are no obvious cranial nerve abnormality. The gait was not tested. CONSULT REPORT [id number] CHIKA BONILLA IMAGING: Chest radiograph, there are bilateral pleural effusions. There is bibasilar infiltrate. There are increased interstitial marking. LABORATORY DATA: CBC: The WBC is 16,000, hemoglobin 9, hematocrit 27.8, the platelet count is 264. Chemistry: Sodium 137, potassium 3.8, BUN is 13, creatinine is 0.9. The proBNP is 2554. ABG on admission, the pH is 7.50, pCO2 is 45.6, the pO2 is 89, bicarb is 35.9. IMPRESSION: 1. [id number] hypoxic respiratory failure. 2. Pneumonia, bibasilar, most likely hospital-acquired pneumonia with recent hospitalization. 3. Pulmonary edema. 4. Leukocytosis. 5. Anemia. 6. Congestive heart failure, chronic diastolic dysfunction. 7. Recent pericardial effusion. 8. Bilateral pleural effusion. RECOMMENDATION: 1. Continue Levaquin. I will add cefepime to cover for Gram-negative brittany and hospital-acquired pneumonia. 2. Methylprednisolone IV. 3. Brovana and budesonide nebulizer. 4. Fluticasone nasal spray and Lucrecia. 5. The patient can use her own BiPAP and supplemental oxygen SpO2 above 90%. 6. Follow up labs and chest radiograph. Dr. Sánchez thank you for allowing me in the care of Ms. Bonilla. TRANSINT:[id number] Voice Confirmation ID: [id number] DOCUMENT ID: [id number] FLOYD CLAYTON MD at 1110 CC: [id number] DICTATION DATE: 09/14/17 1633 MUSIC PROFESSOR: 09/14/17 1711 DIS IN 09/18/17 [place] [id number] [place] [address]
[2017-09-13 18:02] LABS: BASOPHILS 0.1 % (0-2); EOSINOPHILS 0 % (0-7); HEMATOCRIT 27.8 % (36.0-48.0); IMMATURE GRANULOCYTES 0.4 % (0-5); LYMPHOCYTES 9.5 % (15-50); MCH 29.5 pg (26.0-34.0); MCHC 32.4 g/dL (31.0-37.0); MCV 91.1 fL (80.0-100.0); MEAN PLATELET VOLUME 9.6 fL (7.4-10.4); MONOCYTES 10.6 % (2-11); NEUTROPHILS 79.4 % (40-80); PLATELET COUNT 264 10x3/uL (130-400); RBC 3.05 10x6/uL (4.00-5.40); RDW 16.7 % (11.5-14.5)
[2017-09-13 18:15] VITALS: BP 109/51
[2017-09-13 18:32] LABS: ALBUMIN 2.9 g/dL (3.4-5.0); ALKALINE PHOSPHATASE 76 U/L (46-116); ALT (SGPT) 29 U/L (10-68); BILIRUBIN - TOTAL 0.64 mg/dL (0.2-1.3); CALC OSMOLALITY 277 mosm/kg (275-300); CALCIUM 9.7 mg/dL (8.5-10.1); CARBON DIOXIDE 35.9 mmol/L (21.0-32.0); CHLORIDE - SERUM 94 mmol/L (98-107); CREATININE - SERUM 0.9 mg/dL (0.6-1.3); POTASSIUM - SERUM 3.8 mmol/L (3.5-5.1); PROTEIN - SERUM 6.7 g/dL (6.4-8.2); SODIUM 137 mmol/L (136-145); UREA NITROGEN 13 mg/dL (7-18); eGFR NON AFRICAN AMERICAN 64 mL/min (90-120)
[2017-09-13 18:39] LABS: PRO BNP 2554 pg/mL (0-450); TROPONIN-I < 0.017 ng/mL (0.000-0.060)
[2017-09-13 18:43] LABS: GLUCOSE 162 mg/dL (74-106)
[2017-09-13 18:50] LABS: APPEARANCE SLT CLOUDY (CLEAR); BILIRUBIN NEGATIVE (NEGATIVE); COLOR YELLOW (YELLOW); GLUCOSE NEGATIVE (NEGATIVE); KETONE NEGATIVE (NEGATIVE); NITRITE NEGATIVE (NEGATIVE); PROTEIN NEGATIVE (NEGATIVE); UROBILINOGEN NORMAL (NORMAL)
[2017-09-13 19:50] VITALS: BP 111/64
[2017-09-14] VITALS (7 sets, daily range): BP systolic 118–130; BP diastolic 41–86; BMI 40.5
[2017-09-14 06:21] LABS: BASOPHILS 0 % (0-2); EOSINOPHILS 0 % (0-7); HEMATOCRIT 29.7 % (36.0-48.0); HEMOGLOBIN 9.6 g/dL (12-16); IMMATURE GRANULOCYTES 0.3 % (0-5); MCH 29.2 pg (26.0-34.0); MCHC 32.3 g/dL (31.0-37.0); MCV 90.3 fL (80.0-100.0); MEAN PLATELET VOLUME 9.5 fL (7.4-10.4); NEUTROPHILS 88.7 % (40-80); PLATELET COUNT 227 10x3/uL (130-400); RBC 3.29 10x6/uL (4.00-5.40); RDW 15.8 % (11.5-14.5)
[2017-09-14 06:28] LABS: WBC 7.2 10x3/uL (4.8-10.8)
[2017-09-14 06:33] LABS: ANION GAP 9.5 mmol/L (8-16); CALCIUM 9.3 mg/dL (8.5-10.1); CARBON DIOXIDE 34.2 mmol/L (21.0-32.0); CREATININE - SERUM 0.8 mg/dL (0.6-1.3); POTASSIUM - SERUM 3.7 mmol/L (3.5-5.1)
[2017-09-15 04:20] VITALS: BP 107/42
[2017-09-15 08:46] VITALS: BP 122/52
[2017-09-15 12:14] VITALS: BP 117/54
[2017-09-15 14:52] VITALS: Ht 154.9 cm; Wt 97.1 kg
[2017-09-15 16:02] VITALS: BP 120/47
[2017-09-15 21:06] VITALS: BP 110/53
[2017-09-16 00:33] VITALS: BP 112/50
[2017-09-16 04:38] VITALS: BP 117/43
[2017-09-16 06:23] LABS: BASOPHILS 0.1 % (0-2); EOSINOPHILS 0 % (0-7); HEMATOCRIT 31.9 % (36.0-48.0); IMMATURE GRANULOCYTES 0.5 % (0-5); LYMPHOCYTES 7.7 % (15-50); MCH 28.8 pg (26.0-34.0); MCHC 31.3 g/dL (31.0-37.0); MCV 91.9 fL (80.0-100.0); MEAN PLATELET VOLUME 9.4 fL (7.4-10.4); MONOCYTES 6.8 % (2-11); NEUTROPHILS 84.9 % (40-80); PLATELET COUNT 265 10x3/uL (130-400); RBC 3.47 10x6/uL (4.00-5.40); RDW 15.9 % (11.5-14.5); WBC 8.9 10x3/uL (4.8-10.8)
[2017-09-16 07:01] LABS: ALBUMIN 2.7 g/dL (3.4-5.0); ANION GAP 12.6 mmol/L (8-16); BILIRUBIN - TOTAL 0.31 mg/dL (0.2-1.3); CALCIUM 8.5 mg/dL (8.5-10.1); CARBON DIOXIDE 35.4 mmol/L (21.0-32.0); PROTEIN - SERUM 6.6 g/dL (6.4-8.2)
[2017-09-16 07:04] LABS: CREATININE - SERUM 1.2 mg/dL (0.6-1.3)
[2017-09-16 08:20] VITALS: BP 129/50
[2017-09-16 13:31] VITALS: BP 146/53
[2017-09-16 15:56] VITALS: BP 143/51
[2017-09-16 21:02] VITALS: BP 111/44
[2017-09-17 00:10] VITALS: BP 124/54
[2017-09-17 04:03] VITALS: BP 114/64
[2017-09-17 06:05] LABS: BASOPHILS 0.1 % (0-2); EOSINOPHILS 0 % (0-7); HEMATOCRIT 34.2 % (36.0-48.0); HEMOGLOBIN 10.7 g/dL (12-16); IMMATURE GRANULOCYTES 1.2 % (0-5); LYMPHOCYTES 16.4 % (15-50); MCH 28.8 pg (26.0-34.0); MCHC 31.3 g/dL (31.0-37.0); MCV 91.9 fL (80.0-100.0); MEAN PLATELET VOLUME 9.5 fL (7.4-10.4); MONOCYTES 13.4 % (2-11); NEUTROPHILS 68.9 % (40-80); PLATELET COUNT 269 10x3/uL (130-400); RBC 3.72 10x6/uL (4.00-5.40); RDW 15.6 % (11.5-14.5); WBC 8.3 10x3/uL (4.8-10.8)
[2017-09-17 06:21] LABS: ALBUMIN 2.8 g/dL (3.4-5.0); ANION GAP 8.3 mmol/L (8-16); BILIRUBIN - TOTAL 0.39 mg/dL (0.2-1.3); PROTEIN - SERUM 6.7 g/dL (6.4-8.2)
[2017-09-17 06:24] LABS: POTASSIUM - SERUM 3.3 mmol/L (3.5-5.1)
[2017-09-17 08:33] VITALS: BP 110/48
[2017-09-17 12:01] VITALS: BP 117/70
[2017-09-17 16:08] VITALS: BP 101/41
[2017-09-17 20:00] VITALS: BP 128/83; BP 146/75
[2017-09-18 04:00] VITALS: BP 123/57
[2017-09-18 04:50] LABS: BASOPHILS 0.2 % (0-2); EOSINOPHILS 0.4 % (0-7); HEMATOCRIT 33.3 % (36.0-48.0); HEMOGLOBIN 10.4 g/dL (12-16); IMMATURE GRANULOCYTES 2.5 % (0-5); MCH 28.7 pg (26.0-34.0); MCHC 31.2 g/dL (31.0-37.0); MEAN PLATELET VOLUME 9.4 fL (7.4-10.4); MONOCYTES 11.3 % (2-11); NEUTROPHILS 65.6 % (40-80); PLATELET COUNT 238 10x3/uL (130-400); RBC 3.62 10x6/uL (4.00-5.40); RDW 15.5 % (11.5-14.5); WBC 8.5 10x3/uL (4.8-10.8)
[2017-09-18 05:25] LABS: ALBUMIN 2.7 g/dL (3.4-5.0); BILIRUBIN - TOTAL 0.37 mg/dL (0.2-1.3); MAGNESIUM - SERUM 2.1 mg/dL (1.8-2.4); PHOSPHOROUS 2.5 mg/dL (2.5-4.9); POTASSIUM - SERUM 3.6 mmol/L (3.5-5.1); PROTEIN - SERUM 6.1 g/dL (6.4-8.2)
[2017-09-18 05:33] LABS: ANION GAP 10.9 mmol/L (8-16); CARBON DIOXIDE 35.7 mmol/L (21.0-32.0)
[2017-09-18 08:37] VITALS: BP 124/73
[2017-09-18] MEDS ORDERED: MEDROL DOSE PACK4 MG PO (09:01)
[2017-09-18] MEDS ORDERED: LEVAQUIN750 MG PO (09:01)
== END 2017-09-18 10:14 | disposition home health service (06) | DRG 291 ==
LOC: D.ER 17:07 → D.EDHOLD 18:22 → D.MS 18:22
PROVIDERS: Emergency Medicine; Family Medicine
DX: I50.41 Acute combined systolic (congestive) and diastolic (congestive) heart failure (principal); J18.9 Pneumonia, unspecified organism; J96.21 Acute and chronic respiratory failure with hypoxia; J44.0 Chronic obstructive pulmonary disease with (acute) lower respiratory infection; I48.92 Unspecified atrial flutter; J44.1 Chronic obstructive pulmonary disease with (acute) exacerbation; Y95 Nosocomial condition; Z87.891 Personal history of nicotine dependence; E11.9 Type 2 diabetes mellitus without complications; Z79.84 Long term (current) use of oral hypoglycemic drugs; Z99.81 Dependence on supplemental oxygen; I48.91 Unspecified atrial fibrillation; I27.20 Pulmonary hypertension, unspecified; J30.9 Allergic rhinitis, unspecified; H35.30 Unspecified macular degeneration; K59.00 Constipation, unspecified; E87.6 Hypokalemia; I11.0 Hypertensive heart disease with heart failure; I50.9 Heart failure, unspecified

== ENCOUNTER → 2018-06-24 09:32 | Outpatient (CLI) | payer MEDICARE, BC ==
[2017-09-15 14:52] VITALS: BMI 40.4
[~2018-06-24 09:32] MED LIST changes: +LEVAQUIN750 MG PO
== END | disposition home or self-care (01) ==
LOC: D.RAD 09:32
PROVIDERS: ATTEND Internal Medicine Pulmonary Disease
DX: J44.9 Chronic obstructive pulmonary disease, unspecified (principal)

== ENCOUNTER → 2019-11-23 08:03 | Outpatient (CLI) | payer MEDICARE, BC ==
[2017-09-15 14:52] VITALS: BMI 40.4
== END | disposition home or self-care (01) ==
LOC: D.LAB 08:03
PROVIDERS: ATTEND Internal Medicine Pulmonary Disease
DX: Z13.9 Encounter for screening, unspecified (principal)